=== PATIENT | female | born 1975 | race Caucasian/White ===

== ENCOUNTER 2016-08-15 08:10 | Emergency (ER) | payer BC, OTHER ==
[~2016-08-15] VITALS: Ht 165.1 cm; Wt 143.0 kg
[~2016-08-15 08:10] MED LIST: FLUO20CA35 PO; MEDLIST
[2016-08-15 08:12] VITALS: TEMP 36.8; Ht 165.1 cm; Wt 143.0 kg
[2016-08-15] MEDS ORDERED: VNTHFA/IN INH (08:20)
[2016-08-15] MEDS ORDERED: BENZ100C84 PO (08:20)
[2016-08-15 08:24] VITALS: O2SAT 99
[2016-08-15] MEDS ORDERED: SODIUM CHLORIDE 0.9% 1000ML 1,000 ML IV STA (08:32)
[2016-08-15] MEDS ORDERED: ALBUT/IPRATROP 3MG/0.5MG NEB 3 ML VIAL INH STA ×2 (08:35→10:36)
[2016-08-15] MEDS ORDERED: DEXAMETHASONE SOD INJ 10 MG/ML VIAL IV ONE (08:45)
--- NOTE | 2016-08-15 08:58 | DIAGNOSTIC IMAGING REPORT ---
CHEST ONE VIEW PORTABLE CLINICAL HISTORY: Right-sided chest pain. COMPARISON STUDY: No previous studies for comparison. FINDINGS: Lung volumes are normal. No consolidation is identified. There is no evidence of pulmonary edema. Cardiac size is normal. Mediastinal contours are normal. IMPRESSION: No acute cardiopulmonary findings. Electronically signed by: Keron Berg M.D. 08/15/2016 8:56 AM Dictated Date/Time: 08/15/2016 8:56 AM
[2016-08-15 09:00] LABS: BASO % 0.3 %; BASO ABS # 0.03 K/uL (0-0.2); EOS % 3.7 %; HEMATOCRIT 26.7 % (37-47); IG% 0.7 %; LYMPH % 21.3 %; LYMPH ABS # 2.27 K/uL (1.2-3.4); MEAN CELL VOLUME 65.6 fL (80-100); MEAN CORPUSCULAR HEMOGLOBIN 19.2 pg (25-34); MEAN CORPUSCULAR HGB CONC 29.2 g/dl (32-36); MEAN PLATELET VOLUME 9.2 fL (7.4-10.4); MONO % 6.6 %; NEUT % 67.4 %; PLATELET COUNT 393 K/uL (130-400); RED BLOOD COUNT 4.07 M/uL (4.2-5.4); WHITE BLOOD COUNT 10.67 K/uL (4.8-10.8)
[2016-08-15 09:17] LABS: BUN/CREATININE RATIO 17.3 (10-20); CALCIUM 8.6 mg/dl (8.5-10.1); CREATININE 0.75 mg/dl (0.60-1.20); POTASSIUM 4.3 mmol/L (3.5-5.1)
[2016-08-15 09:22] LABS: CKMB/CK RATIO 0.5 (0-3.0)
[2016-08-15 09:26] LABS: PREG INTERNAL NEGATIVE QC NEG CLEAR BACKGROUND; PREG INTERNAL POSITIVE QC POS CONTROL LINE
[2016-08-15 09:34] LABS: ANISOCYTOSIS PRESENT; COMPLETE YES; POIKILOCYTOSIS PRESENT; POLYCHROMASIA 1+
[2016-08-15 10:23] VITALS: BP 139/76; PULSE 71
[2016-08-15] MEDS ORDERED: HYDROCODONE/ACETAMOPHEN 5/325MG TAB PO STA (10:36)
[2016-08-15 10:45] VITALS: O2SAT 96
[2016-08-15] MEDS ORDERED: HYDR-5688 PO (10:51)
[2016-08-15] MEDS ORDERED: PRED20TA PO (10:51)
--- NOTE | 2016-08-15 15:42 | EMERGENCY ROOM VISIT NOTE ---
History Report prepared by Vamshiibzeferino: Saqib Khan Under the Supervision of: Dr. Rodrigo Lawson M.D. First contact with patient: 08:19 Chief Complaint: RESPIRATORY PROBLEMS Stated Complaint: RIGHT SIDED CHEST PAIN History of Present Illness The patient is a 41 year old female who presents to the Emergency Room with complaints of worsening right-sided chest pain since yesterday. The patient feels a pressure sensation under the right breast. She rated the pain 7/10 in severity. The pain is worse with coughing, which is mildly productive. The pain is not modified by breathing or eating. The patient has had a respiratory illness for the past two weeks. She has taken a five day course of Prednisone, Tessalon Perls, and Azithromycin. The patient has not had any fevers or chills this week. She also denies LOC, headache, diaphoresis, visual changes, neck pain , breathing difficulties, nausea, vomiting, abdominal pain, back pain, melena, hematochezia, urinary symptoms, numbness, weakness, lymphadenopathy, rash, leg pain or swelling, or other complaints. The patient has a history of asthma, but not other respiratory problems. She denies any history of cardiac disease or blood clots. She has not traveled recently. She works at a school. Source of History: patient Onset: yesterday Position: chest (right) Symptom Intensity: 7/10 Quality: pressure Timing: worsening Associated Symptoms: + cough Review of Systems See HPI for pertinent positives and negatives. A total of ten systems were reviewed and were otherwise negative. Past Medical & Surgical Medical Problems: (1) Asthma Family History No pertinent family history Social History Smoking Status: Never Smoker Occupation Status: employed Current/Historical Medications Scheduled Albuterol Hfa (Ventolin Hfa), 2 PUFFS INH Q4 Benzonatate (Tessalon Perles), 1 CAP PO TID Prednisone (Prednisone), 3 TAB PO DAILY Scheduled PRN Hydrocodone/Acetaminophen 5MG/325MG ([place] 5MG/325MG), 1-2 TABS PO Q6H PRN for Pain Allergies Coded Allergies: No Known Allergies (Verified , 08/22/10) Physical Exam Vital Signs Date Time Temp Pulse Resp B/P Pulse Ox O2 Delivery O2 Flow Rate FiO2 08/15/16 10:45 96 Room Air 08/15/16 10:23 71 18 139/76 95 Room Air 08/15/16 08:39 75 08/15/16 08:24 99 Room Air 08/15/16 08:24 99 Room Air 08/15/16 08:24 98 Room Air 08/15/16 08:12 36.8 82 19 165/86 99 Room Air Physical Exam GENERAL: Awake, alert, well-appearing, in no distress HENT: Normocephalic, atraumatic. Oropharynx unremarkable. EYES: Normal conjunctiva. Sclera non-icteric. NECK: Supple. No nuchal rigidity. FROM. No JVD. RESPIRATORY: Scattered wheezes and rhonchi. CARDIAC: Regular rate, normal rhythm. Extremities warm and well perfused. Pulses equal. ABDOMEN: Soft, non-distended. No tenderness to palpation. No rebound or guarding. No masses. RECTAL: Deferred. MUSCULOSKELETAL: Chest examination reveals mild right anterior rib tenderness. The back is symmetrical on inspection without obvious abnormality. There is no CVA tenderness to palpation. No joint edema. LOWER EXTREMITIES: Calves are equal size bilaterally and non-tender. No edema. No discoloration. NEURO: Normal sensorium. No sensory or motor deficits noted. SKIN: No rash or jaundice noted. Medical Decision & Procedures ER Provider Diagnostic Interpretation: X-ray: Per my interpretation, radiologist review. CHEST ONE VIEW PORTABLE CLINICAL HISTORY: Right-sided chest pain. COMPARISON STUDY: No previous studies for comparison. FINDINGS: Lung volumes are normal. No consolidation is identified. There is no evidence of pulmonary edema. Cardiac size is normal. Mediastinal contours are normal. IMPRESSION: No acute cardiopulmonary findings. Electronically signed by: Keron Berg M.D. 08/15/2016 8:56 AM Dictated Date/Time: 08/15/2016 8:56 AM Laboratory Results 08/15/16 08:45 Red Blood Count 4.07, Mean Corpuscular Volume 65.6, Mean Corpuscular Hemoglobin 19.2, Mean Corpuscular Hemoglobin Concent 29.2, Mean Platelet Volume 9.2, Neutrophils (%) (Auto) 67.4, Lymphocytes (%) (Auto) 21.3, Monocytes (%) (Auto) 6.6, Eosinophils (%) (Auto) 3.7, Basophils (%) (Auto) 0.3, Neutrophils # (Auto) 7.19, Lymphocytes # (Auto) 2.27, Monocytes # (Auto) 0.70, Eosinophils # (Auto) 0.40, Basophils # (Auto) 0.03 08/15/16 08:45 Test 08/15/16 08:45 08/15/16 08:48 White Blood Count 10.67 K/uL (4.8-10.8) Red Blood Count 4.07 M/uL (4.2-5.4) Hemoglobin 7.8 g/dL (12.0-16.0) Hematocrit 26.7 % (37-47) Mean Corpuscular Volume 65.6 fL (80-100) Mean Corpuscular Hemoglobin 19.2 pg (25-34) Mean Corpuscular Hemoglobin Concent 29.2 g/dl (32-36) Platelet Count 393 K/uL (130-400) Mean Platelet Volume 9.2 fL (7.4-10.4) Neutrophils (%) (Auto) 67.4 % Lymphocytes (%) (Auto) 21.3 % Monocytes (%) (Auto) 6.6 % Eosinophils (%) (Auto) 3.7 % Basophils (%) (Auto) 0.3 % Neutrophils # (Auto) 7.19 K/uL (1.4-6.5) Lymphocytes # (Auto) 2.27 K/uL (1.2-3.4) Monocytes # (Auto) 0.70 K/uL (0.11-0.59) Eosinophils # (Auto) 0.40 K/uL (0-0.5) Basophils # (Auto) 0.03 K/uL (0-0.2) RDW Standard Deviation 43.3 fL (36.4-46.3) RDW Coefficient of Variation 18.3 % (11.5-14.5) Immature Granulocyte % (Auto) 0.7 % Immature Granulocyte # (Auto) 0.08 K/uL (0.00-0.02) Polychromasia 1+ Poikilocytosis PRESENT Anisocytosis PRESENT Anion Gap 9.0 mmol/L (3-11) Est Creatinine Clear Calc Drug Dose 143.9 ml/min Estimated GFR () 115.6 Estimated GFR (Non- 99.7 BUN/Creatinine Ratio 17.3 (10-20) Calcium Level 8.6 mg/dl (8.5-10.1) Total Bilirubin 0.4 mg/dl (0.2-1) Direct Bilirubin 0.1 mg/dl (0-0.2) Aspartate Amino Transf (AST/SGOT) 9 U/L (15-37) Alanine Aminotransferase (ALT/SGPT) 23 U/L (12-78) Alkaline Phosphatase 55 U/L (45-117) Total Creatine Kinase 196 U/L (26-192) Creatine Kinase MB 0.9 ng/ml (0.5-3.6) Creatine Kinase MB Ratio 0.5 (0-3.0) Total Protein 6.5 gm/dl (6.4-8.2) Albumin 3.2 gm/dl (3.4-5.0) Lipase 124 U/L (73-393) Human Chorionic Gonadotropin, Qual NEG (NEG) Bedside D-Dimer 200 ng/mlFEU (0-450) Bedside Troponin I 0.000 ng/ml (0-0.045) Laboratory results reviewed by me Medications Administered Medications (Trade) Dose Ordered Sig/Farzad Route Start Time Stop Time Status Last Admin Dose Admin Sodium Chloride (Nss 1000ml) 1,000 ml @ 999 mls/hr Q1H1M STAT IV 08/15/16 08:32 08/15/16 09:32 DC 08/15/16 08:41 999 MLS/HR Dexamethasone Sodium Phosphate (Decadron Inj) 10 mg NOW ONCE IV 08/15/16 08:45 08/15/16 08:46 DC 08/15/16 08:40 10 MG Albuterol/ Ipratropium (Duoneb) 3 ml NOW STAT INH 08/15/16 08:35 08/15/16 08:36 DC 08/15/16 08:40 3 ML Albuterol/ Ipratropium (Duoneb) 3 ml NOW STAT INH 08/15/16 10:36 08/15/16 10:38 DC 08/15/16 10:46 3 ML Acetaminophen/ Hydrocodone Bitart ([place] 5/325 Tab) 1 tab NOW STAT PO 08/15/16 10:36 08/15/16 10:38 DC 08/15/16 10:47 1 TAB ECG Indication: chest pain Rate (beats per minute): 75 Rhythm: normal sinus Findings: no acute ischemic change, no ectopy ED Course 0832: The patient was evaluated in room B11b. A complete history and physical exam was performed. 0832: NSS 1000 ml @ 999 mls/hr. 0835: DuoNeb 3 ml INH. 0845: Decadron 10 mg IV. 1034: Updated the patient on the results. 1036: [place] 5/325 mg PO, DuoNeb 3 ml INH. 1100: Reassessed the patient. She verbalized understanding and agreement of the treatment plan. The patient is ready for discharge. Medical Decision Triage Nursing notes reviewed. The patient's presentation and history were concerning for Cough, reactive airways, and right-sided chest pain Etiologies such as pleurisy, reactive airway disease, cardiac ischemia, aortic dissection, pulmonary embolism, pneumonia, pneumothorax, musculoskeletal, infections, gastrointestinal, as well as others were entertained. The patient was evaluated. She had some wheezing. She was given a DuoNeb and Decadron. On reassessment she was feeling better. She was given a second neb as well as hydrocodone for the rib pain. The patient's CBC revealed a moderate anemia which was consistent with prior values. The patient notes a long history of anemia but is unsure exactly why. She thinks she may have thalassemia. The patient had a negative d-dimer and troponin. Chemistry panel , hCG, and LFTs were unremarkable. I suspect that she has some pleurisy or costochondritis from her cough. There is no evidence of rib fracture. I discussed conservative management with the patient. She'll be given a small amount of hydrocodone, use her inhaler, and I will put her on a full dose of prednisone for 4 more days. She thinks she was only taking 2 pills a day which would be likely 40 mg and given her weight she will need more. By the evaluation outlined above other emergent etiologies such as those listed in the differential, as well as others, were deemed relatively unlikely. The patient was informed about the findings as listed above. All questions were answered and she was pleased with the treatment. Return instructions were outlined and the patient was discharged in stable condition. The patient was referred to her PCP for follow-up for a recheck of the current condition. The chart was completed utilizing [employer] [place] voice recognition software. Grammatical errors, random word insertions, pronoun errors, and incomplete sentences are an occasional consequence of this system due to software limitations, ambient noise, and hardware issues. Any formal questions or concerns about the content, text, or information contained within the body of this dictation should be directly addressed to the physician for clarification. [place] Drug Monitoring Program Search Results: patient reviewed within database, no issues identified Impression Primary Impression: RAD (reactive airway disease) Additional Impressions: Right-sided chest pain Anemia Scribe Attestation The scribe's documentation has been prepared under my direction and personally reviewed by me in its entirety. I confirm that the note above accurately reflects all work, treatment, procedures, and medical decision making performed by me. Departure Information Dispostion Home / Self-Care Prescriptions Prednisone (Prednisone) 20 Mg Tab 3 TAB PO DAILY, #12 TAB FOR 4 DAYS Prov: Rodrigo Lawson MD 08/15/16 Hydrocodone/Acetaminophen 5MG/325MG ([place] 5MG/325MG) Tab 1-2 TABS PO Q6H Y for Pain, #12 TAB Prov: Rodrigo Lawson MD 08/15/16 Referrals Nevaeh Potter M.D. (PCP) Forms HOME CARE DOCUMENTATION FORM, IMPORTANT VISIT INFORMATION, WORK / SCHOOL INSTRUCTIONS Patient Instructions My [facility] Additional Instructions Albuterol Inhaler: Take 2 puffs four times daily for five days, then as needed. Prednisone 60mg: Once daily until the prescription is finished. It is best to take this earlier in the day as some patients note occasional difficulty falling asleep when taken in the late evening. Hydrocodone/acetaminophen 5/325mg: Take 1-2 pills every 6 hours as needed for pain. Avoid additional Acetaminophen/Tylenol, alcohol, operating machinery or dangerous equipment, working on ladders or roofs, DRIVING, or situations where being under the influence may be dangerous. It is recommended to use a stool softener such as Colace, 100mg twice daily while taking this medication to avoid constipation. Rest and drink plenty of fluids. Avoid smoke/smoking, fumes, dust, or any triggers in the past that may have affected your breathing. Continue current medications. Return to the ER for chest pain, difficulty breathing, fevers, vomiting, worsening of your condition, or as needed. Follow up with your primary physician this week for a recheck of your current condition. Problem Qualifiers
== END 2016-08-15 11:07 | disposition home or self-care (01) ==
LOC: C.EDB 08:11
DX: J45.909 Unspecified asthma, uncomplicated (principal); R07.9 Chest pain, unspecified; D64.9 Anemia, unspecified

== ENCOUNTER 2023-08-31 00:59 | Observation (INO) ==
--- OUTSIDE RECORDS SUMMARY | 2023-08-31 01:04 | External Medical Summary | Summary of Care ---
Author Name Unknown Organization [facility] [address] [address] [address] Phone [phone] Care Team Providers Care Professor Of Industrial Technology Name Role Phone Unavailable Primary Care Provider Unavailabl e Reason for Visit * Reason Comments Acute Patient presents in office today for rash located on B/L arms and legs -- noticed since Friday, feels like slightly improving, but some blistering on some spots.Red, some itchiness -- has used hydrocortisone cream, slight relief.Patient denies any changes in normal routine (laundry, soaps, etc ..) Encounter Details Date Type Department Care Team (Late st Contact Info) Description 06/06/2023 8:40 AM EST Office Visit [facility] [address] [facility] [place] [address] Dayan Brown CRNP [address] [facility] [place] [address] Contact dermatitis, unspecified contact dermatitis type, unspecified trigger* Allergies Active Allergy Reactions Criticality Noted Date Comments Ferric Derisomaltose 08/07/2021 Approx 5 min into infusion, pt flushed, felt like passing out, chest heavy. Given solucortef which resolved symptoms Pollen Other (Please comment) High 12/05/2014 documented as of this encounter (statuses as of 06/06/2023) Medications Medication Sig Dispensed Refills Start Date End Date Status FLONASE 50 MCG/ACT NA SUSPIndications:All ergic rhinitis Two sprays each nostril once daily 1 Bottle 11 03/24/2012 Active cetirizine (ZYRTEC) 10 MG Tablet Take 1 Tablet by mouth in the morning. 0 Active Vitamin D 50 MCG (2000 UT) Oral Capsule Take 2,000 Units by mouth daily. 0 Active Childrens Chewable Vitamins Oral Tablet Chewable Take 1 Tablet by mouth in the morning and 1 Tablet before bedtime. 0 Active Vitamin A 2250 MCG (7500 UT) Oral Capsule Take by mouth . 0 Active Nystatin 785304 UNIT/GM External Powder (Nystop) Apply topically to affected area 2 times a day . 60 g 2 10/30/2021 Active Citracal Petites/Vitamin D 200-250 MG-UNIT Oral Tablet (Calcium Citrate-Vitamin D) Take by mouth 2 Tablets 2 times a day . 0 Active predniSONE 20 MG Oral Tablet (Deltasone) Take 1 Tablet by mouth daily for 5 days, THEN 0.5 Tablets daily for 5 days. 8 Tablet 0 06/06/2023 06/16/2023 Active Triamcinolone Acetonide 0.1 % External Cream (Aristocort) Apply topically to affected area 2 times a day. To affected area. 60 g 0 06/06/2023 Active Hospital, Clinic, or Other Facility Administered Medication Ordered Dose Route Frequency Start Date End Date Status vitamin b-12 (Cyanocobalamin) inj 1,000 mcgIndications:Intestinal postoperative nonabsorption 1000 mcg IM [id number] 09/10/2022 11/04/19 24 Active documented as of this encounter (statuses as of 06/06/2023) Active Problems Problem Noted Date Diagnosed Date Contact dermatitis 06/06/2023 Hx of melanoma in situ 08/12/2022 Overview: Early MIS/severely atypical nevus (central upper back 08/12) Hx of nonmelanoma skin cancer 07/31/2021 Overview: basal cell carcinoma (R nasal ala 06/2020) Body mass index (BMI) of 40.0 to 44.9 in adult 1 Overview: Per Obesity protocol - Per Obesity protocol - Per Obesity protocol - Pre-operative examination 09/22/2020 Prediabetes 07/03/2020 Overview: Per Prediabetes protocol Depression with anxiety 06/21/2020 Iron deficiency anemia 12/18/2018 Thalassemia trait documented as of this encounter (statuses as of 06/06/2023) Resolved Problems Problem Noted Date Diagnosed Date Resolved Date Body mass index (BMI) of 45. 0 to 49.9 in adult 04/02/2021 05/03/2021 Overview: Per Obesity protocol - Per Obesity protocol - Body mass index (BMI) of 50. 0 to 59.9 in adult 11/28/2020 04/05/2021 Overview: Per Obesity protocol - Anemia 12/18/2018 02/22/2020 BMI 60.0-69.9, adult 11/30/2018 021 Overview: Per Obesity protocol #1 Obesity, morbid (more than 1 00 lbs over ideal weight or BMI > 40) 05/26/2013 12/02/2018 Overview: Per Obesity protocol #1 Acute sinusitis 03/24/2012 05/05/2012 Acute sinusitis 11/11/2011 05/05/2012 Chronic rhinitis 06/08/2011 02/22/2020 Acute bronchitis, complicated 06/08/2011 05/05/2012 Cough 06/08/2011 05/05/2012 Allergic rhinitis 04/03/2011 07/18/2020 Nausea 04/03/2011 05/05/2012 Overview: ICD-10 update of inactive term Malaise and fatigue 05/01/2010 02/22/20 20 Unspecified viral infection, in conditions classified elsewhere and of unspecified site 05/01/2010 01/18/2011 Obesity, morbid (more than 1 00 lbs over ideal weight or BMI > 40) 01/02/2010 05/05/2012 Overview: Per Obesity Protocol, #19 ICD-10 update of inactive term Other iron deficiency anemia 07/10/2009 02/22/2020 Overview: ICD-10 update of inactive term influenza type A 05/19/2009 08/28/2009 Overview: Influenza type A positive nasal swab 05/19/09 Other known or suspected fet al abnormality, not elsewhere classified, affecting management of mother, antepartum condition or complication 02/24/2009 02/27/2009 ADVANCE DIRECTIVE INFORMATION 02/23/2009 07/18/2020 Overview: Pt states that she has a living will. Advised to bring copy at next visit. Anemia of mother, complicati ng , childbirth, or the puerperium, unspecified as to episode of care(648.20) 01/13/2009 08/28/2009 Overview: Abnormal CBC at NOB visit, additional labs ordered to assess. Normal hemoglobin pattern noted, discuss at next visit-discussed; message to Dr. Castillo 02/02 for further advice Per dryerman/woman 06/12: begin ferrous sulfate 325mg TID; repeat CBC q 2-3 weeks until delivery Repeat CBC 2-3 mths PP or sooner if pt symptomatic. May f/u with hem PP. Obtained 06/27: 8.7 Hematology consult 07/10: pt to complete further bloodwork for alpha thalessemia trait, pt to begin OTC FeSO4 TID Hg 08/10 = 8.5 Bacterial infection due to S treptococcus, group B 01/13/2009 08/28/2009 Overview: GBS UTI at NOB visit. Rx placed, needs NAYA-obtained 02/02-+GBS-Rx for Pen V started 02/06-needs NAYA-obtained 02/27/09 IV abx in labor Trichomonal vaginitis 01/13/20092009 Overview: Found on NOB pap smear. Rx placed for 2g Flagyl, advised partner needs to be treated. Pt finished abx, partner was treated NAYA next visit-negative Pre-eclampsia, mild, delivered 2009 08/28/2009 Overview: History of preeclampsia with previous . 24hr urine and baseline labs ordered- all WNL Encounter for supervision of other normal 01/06/2009 08/28/2009 Overview: History of preeclampsia with prior , delivered at 38wk. Baseline 24 hour urine at NOB visit-0.173grams ICD-10 update of inactive term History of section complicating 01/06/2009 08/28/2009 Overview: Vertical skin c/s with previous . Aware of need for repeat c/s this . Pt states that uterine incision in transverse and OR records confirm Morbid obesity, BMI not known 07/10/2007 08/28/2009 Overview: Early glucola ordered-wnl Has been seeing senior java engineer prior to . ADJ DISORDER W/DEPRES MOOD 04/10/2006 0 08/28/2009 Overview: Stopped Effexor through PCP, doing well Monitor throughout IRON DEFIC ANEMIA NOS 03/25/20062008 Overview: Not taking fe supp currently Normal , first 09/16/200104/20 OVERWEIGHT 09/16/2001 02/27/2009 documented as of this encounter (statuses as of 06/06/2023) Immunizations Name Administration Dates Next Due PPD 03/14/2016 Seasonal Influenza, Split, I IV3, With Preserve, Inj 04/24/2013,04/15/2012,05/21/2011, 0 10 TD - Tetanus/Diptheria (ADULT) 07/21/2000 TDAP (age 11 and older)(Adacel) 03/06/2011 documented as of this encounter Social History Tobacco Use Types Packs/Day Years Used Date Smoking Tobacco: Never Smokeless Tobacco: Never Alcohol Use Standard Drinks/Week Comments No 0 (1 standard drink = 0.6 oz pur e alcohol) PHQ-2 Answer Date Recorded PHQ-2 Score 2 02/22/2020 Sex and Gender Information Value Date Recorded Sex Assigned at Not on file Gender Identity Not on file Sexual Orientation Not on file Job Start Date Occupation Industry Not on file Not on file Not on file documented as of this encounter Last Filed Vital Signs Vital Sign Reading Time Taken Comments Blood Pressure 110/64 06/06/2023 8:44 AM EST Pulse 65 06/06/2023 8:44 AM EST Temperature - - Respiratory Rate 18 06/06/2023 8:44 AM EST Oxygen Saturation 99% 06/06/2023 8:44 AM EST Inhaled Oxygen Concentration - - Weight - - Height 165.1 cm (5' 5") 06/06/2023 8:44 AM EST Body Mass Index - - documented in this encounter Functional Status Functional Status Response Date of Assess ment Are you deaf or do you have serious difficulty h earing? No 10/04/2020 Are you blind or do you have serious difficulty seeing, even when wearing glasses? No 10/04/2020 Do you have serious difficul ty walking or climbing stairs? (5 years old or older) No 10/05/2020 Do you have difficulty dress ing or bathing? (5 years old or older) No 10/04/2020 Because of a physical, menta l, or emotional condition, do you have difficulty doing errands alone such as visiting a doctor s office or shopping? (15 years old or older) No 10/05/19 Cognitive Status Response Date of Assessm ent Because of a physical, menta l, or emotional condition, do you have serious difficulty concentrating, remembering, or making decisions? (5 years old or older) No 10/04/2020 documented as of this encounter Progress Notes * Dayan Brown CRNP - 06/06/2023 8:55 AM EST Images from the original note were not included. Acute Family Medicine Visit CC: Chief Complaint Patient presents with Acute Patient presents in office today for rash located on B/L arms and legs -- noticed since Friday, feels like slightly improving, but some blistering on some spots. Red, some itchiness -- has used hydrocortisone cream, slight relief. Patient denies any changes in normal routine (laundry, soaps, etc ..) History of Present Illness: Martha Jones is a 48 year old female presenting today with complaints of rash on arms and legs. Denies fever or chills. No pain but very itchy. Tried benedryl at bedtime and hydrocortisone. Denies new meds No recent travel Denies changes to body care products Denies tick bites Social History Socioeconomic History Marital status: Single Spouse name: Not on file Number of children: Not on file Years of education: Not on file Highest education level: Not on file Occupational History Occupation: Food services Employer: [employer] Comment: [employer] Tobacco Use Smoking status: Never Smokeless tobacco: Never Vaping Use Vaping Use: Never used Substance and Sexual Activity Alcohol use: No Drug use: No Sexual activity: Yes Partners: Male Other Topics Concern Service Not Asked Blood Transfusions Not Asked Caffeine Concern Not Asked Occupational Exposure Not Asked Hobby Hazards Not Asked Sleep Concern Not Asked Stress Concern Not Asked Weight Concern Not Asked Special Diet Not Asked Back Care Not Asked Exercise Yes Comment: occ Bike Helmet Not Asked Seat Belt Not Asked Self-Exams Yes Comment: breast Social History Narrative Not on file Social Determinants of Health Financial Resource Strain: Not on file Food Insecurity: Unknown (06/05/2023) Hunger Vital Sign Worried About Running Out of Food in the Last Year: Patient refused Ran Out of Food in the Last Year: Patient refused Transportation Needs: Not on file Physical Activity: Not on file Stress: Not on file Social Connections: Not on file Intimate Partner Violence: Not on file Housing Stability: Not on file PMH: Past Medical History: Diagnosis Date Allergic rhinitis Depressive disorder, not elsewhere classified Iron deficiency anemia Morbid obesity with BMI of 40.0-44.9, adult (HCC) Other anxiety states Other specified anemias Thalassemia trait Past Surgical History: Procedure Laterality Date DELIVERY 2002 and 2009 EGD, FLEXIBLE, DIAGNOSTIC N/A 10/04/2020 ESOPHAGOGASTRODUODENOSCOPY (EGD), FLEXIBLE, TRANSORAL, DIAGNOSTIC performed by Andrade Garcia MD at OR [facility] LAPAROSCOPE PROCEDURE, LIVER N/A 10/04/2020 UNLISTED LAPAROSCOPIC PROCEDURE LIVER performed by Andrade Garcia MD at OR [facility] LAPAROSCOPIC GASTRIC BYPASS/DAYSI-EN-Y N/A 10/04/2020 ROBOTIC LAPAROSCOPIC GASTRIC RESTRICTIVE BYPASS DAYSI EN Y performed by Andrade Garcia MD at OR [facility] REMOVE GALLBLADDER 1995 REMOVE TONSILS & ADENOIDS, UNDER 12 1980 RMV LSN SCLP,NCK,EXT 1.1-2.0CM 10/24/05 Removal of cysts from scalp x [address] Mahoney Outpatient Medications Marked as Taking for the 06/06/23 encounter (Office Visit) with Naeem Brown CRNP Medication Sig Citracal Petites/Vitamin D 200-250 MG-UNIT Oral Tablet (Calcium Citrate-Vitamin D) Take by mouth 2 Tablets 2 times a day . Nystatin 944758 UNIT/GM External Powder (Nystop) Apply topically to affected area 2 times a day . Vitamin A 2250 MCG (7500 UT) Oral Capsule Take by mouth . Childrens Chewable Vitamins Oral Tablet Chewable Take 1 Tablet by mouth in the morning and 1 Tabletbefore bedtime. Vitamin D 50 MCG (2000 UT) Oral Capsule Take 2,000 Units by mouth daily. cetirizine (ZYRTEC) 10 MG Tablet Take 1 Tablet by mouth in the morning. FLONASE 50 MCG/ACT NA SUSP Two sprays each nostril once daily Current Facility-Administered Medications for the 06/06/23 encounter (Office Visit) with Dayan Brown CRNP Medication vitamin b-12 (Cyanocobalamin) inj 1,000 mcg Review of patient's allergies indicates: Allergen Reactions Pollen Other (Please comment) Monoferric [Ferric Derisomaltose] Approx 5 min into infusion, pt flushed, felt like passing out, chest heavy. Given solucortef which resolved symptoms Most Recent Immunizations Administered Date(s) Administered Iron Sucrose 11/17/2009 PPD 03/14/2016 Seasonal Influenza, Split, IIV3, With Preserve, Inj 04/24/2013 TD - Tetanus/Diptheria (ADULT) 07/21/2000 TDAP (age 11 and older)(Adacel) 03/06/2011 Review of Systems: Review of Systems Constitutional: Negative for fatigue. Respiratory: Negative for shortness of breath and wheezing. Cardiovascular: Negative for chest pain. Skin: Positive for rash. Physical Exam: BP 110/64 | Pulse 65 | Resp 18 | Ht 1.651 m (5' 5") | SpO2 99% | BMI 32.95 kg/m | BSA 2.03 m Physical Exam HENT: Head: Normocephalic. Pulmonary: Effort: Pulmonary effort is normal. Skin: Findings: Erythema and rash present. Rash is macular and papular. Neurological: General: No focal deficit present. Mental Status: She is alert and oriented to person, place, and time. Psychiatric: Mood and Affect: Mood normal. Behavior: Behavior normal. Thought Content: Thought content normal. Judgment: Judgment normal. Assessment and Plan: 1. Contact dermatitis, unspecified contact dermatitis type, unspecified trigger UNKNOWN TRIGGER C/W CONTACT DERM ADD ZYRTEC 10 MG ADD PREDNISONE TAPER ADD TOPICAL STEROID MED USE AND AND PRECAUTIONS I have advised the patient to call our office incase of any worsening or new symptoms. I spent a total of 20-29 minutes (exact time 20 mins) on the date of service in preparation, delivery, and documentation of the care provided to Martha Jones excluding any time spent in the performance of separately billed services. Tyesha, MSN, AUTUNM [facility] Medicine documented in this encounter Nursing Notes * Iwona Arambula MED ASSIST - 06/06/2023 8:43 AM EST The patient has been properly identified by confirmation of name and date of . Chief Complaint Patient presents with Acute Patient presents in office today for rash located on B/L arms and legs -- noticed since Friday, feels like slightly improving, but some blistering on some spots. Red, some itchiness -- has used hydrocortisone cream, slight relief. Patient denies any changes in normal routine (laundry, soaps, etc ..) documented in this encounter Plan of Treatment Upcoming Encounters Date Type Department Care Team (Late st Contact Info) Description 07/25/2023 2:00 PM EST Nurse Only Nutrition & Weight Management, [facility] [address] [facility] [place] [address] [facility], Nurse Gi Nutrition [facility] [address] [facility] [place] [id number] 08/12/2023 2:20 PM EST Office [address], [address] [address] Lesly Velazquez PA-C [address] [place] [address] [place] [phone] 08/19/2023 2:00 PM EST Office Visit Hematology/Oncology [facility] Mendoza [place] [address] [facility] [place] [address] Rhoda Lerma CRNP [address] [place] [address] Health Maintenance Due Date Last Done Comments Hepatitis B (1 of 3 - 3-dose series) 1975 COVID-19 Vaccine (#1) 1975 Hepatitis C Screening 01/11/1994 HPV/Co-Test 01/11/2006 Cervical Cancer Screening 07/04/2013 Pap Smear 07/04/2013 07/04/2010, 06/20, 01/06/2009, Additional history exists Cologuard 01/11/2021 Colonoscopy 01/11/2021 Colorectal Cancer Screening 01/11/2021 Fecal Occult Blood Test 01/11/2021 05/06/1996 Sigmoidoscopy 01/11/2021 Depression Screening 02/21/2021 02/22/2020 DTaP,Tdap,and Td Vaccines (2 - Td or Tdap) 03/06/2021 03/06/2011, 07/21/2000 Mammogram 03/10/2021 03/10/2020, 08/14/2016 Influenza Vaccine (FLU shot) (#1) 2023 04/24/2013, 04/15/2012, 05/21/2011, Additional history exists HbA1c 09/10/2023 09/10/2022, 02/0 03/2022, 03/05/2021, Additional history exists Lipid Panel 09/10/2027 09/10/2022, 02/0 03/2022, 03/05/2021, Additional history exists GARDASIL-HPV IMMUNIZATION SERIES Aged Out No longer eligible based on patient's age to complete this topic MENINGOCOCCAL (MENACTRA/MENVEO) Aged Out No longer eligible based on patient's age to complete this topic Pneumococcal Vaccine: Pediatrics (0 to 5 Years) and At-Risk Patients (6 to 64 Years) Aged Out No longer eligible based on patient's age to complete this topic documented as of this encounter Medical Devices Not on filedocumented as of this encounter Visit Diagnoses Diagnosis Contact dermatitis, unspecified contact dermatitis type, unspecified trigger- Primary documented in this encounter Advance Directives Latest Code Status on File Code Status Date Activated Date Inactivated Comments Full Code 10/04/2020 11:01 AM 10/05/2020 4:28 PM This order reflects the patients wishes and were consensually agreed upon. Code Status History Code Status Date Activated Date Inactivated Comments Full Code 10/04/2020 6:30 AM 10/04/2020 11:01 AM This order reflects the patients wishes and were consensually agreed upon.
--- OUTSIDE RECORDS SUMMARY | 2023-08-31 01:04 | External Medical Summary | Summary of Care ---
Author Name Unknown Organization [facility] Address [address] [facility] [place] [address] Phone [phone] Care Team Providers Care Detective Private Eye Name Role Phone Unavailable Primary Care Provider Unavailabl e Reason for Visit * Reason Comments Medication Administration B12 Encounter Details Date Type Department Care Team (Late st Contact Info) Description 07/25/2023 2:00 PM EST Nurse Only Nutrition & Weight Management, [facility] [address] [facility] [place] [address] [facility], Nurse Gi Nutrition [facility] [address] [facility] [place] [address] Medication Administration (B12/) Allergies Active Allergy Reactions Criticality Noted Date Comments Ferric Derisomaltose 08/07/2021 Approx 5 min into infusion, pt flushed, felt like passing out, chest heavy. Given solucortef which resolved symptoms Pollen Other (Please comment) High 12/05/2014 documented as of this encounter (statuses as of 07/25/2023) Medications Medication Sig Dispensed Refills Start Date End Date Status FLONASE 50 MCG/ACT NA SUSPIndications:Stanley rgic rhinitis Two sprays each nostril once daily [...] Take by mouth . 0 Active Nystatin 034161 UNIT/GM External Powder (Nystop) Apply topically to affected area 2 times a day . 60 g 2 10/30/2021 Active Citracal Petites/Vitamin D 200-250 MG-UNIT Oral Tablet (Calcium Citrate-Vitamin D) Take by mouth 2 Tablets 2 times a day . 0 Active Triamcinolone Acetonide 0.1 % External Cream (Aristocort) Apply topically to affected area 2 times a day. To affected area. 60 g 0 06/06/2023 Active Hospital, Clinic, or Other Facility Administered Medication Ordered Dose Route Frequency Start Date End Date Status vitamin b-12 (Cyanocobalamin) inj 1,000 mcgIndications:Intestinal postoperative nonabsorption 1000 mcg IM [id number] 09/10/2022 11/04/19 24 Active documented as of this encounter (statuses as of 07/25/2023) Active Problems Problem Noted Date Diagnosed Date [...] as of this encounter (statuses as of 07/25/2023) Resolved Problems Problem Noted Date Diagnosed Date [...] Dr. Castillo 02/02 for further advice Per sequins spooler 06/12: begin ferrous sulfate 325mg TID; repeat [...] Overview: Early glucola ordered-wnl Has been seeing manager systems prior to . ADJ DISORDER W/DEPRES MOOD 04/10/2006 0 08/28/2009 Overview: Stopped Effexor through PCP, doing well Monitor throughout IRON DEFIC ANEMIA NOS 03/25/20062008 Overview: Not taking fe supp currently Normal , first 09/16/200104/20 OVERWEIGHT 09/16/2001 02/27/2009 documented as of this encounter (statuses as of 07/25/2023) Immunizations Name Administration Dates Next Due PPD [...] Answer Date Recorded PHQ-2 Score 2 02/22/2020 Hunger Vital Sign Answer Date Recorded Within the past 12 months, y ou worried that your food would run out before you got the money to buy more. Patient refused Within the past 12 months, t he food you bought just didn't last and you didn't have money to get more. Patient refused Sex and Gender Information Value Date Recorded Sex Assigned at Not on file Gender Identity Not on file Sexual Orientation Not on file Job Start Date Occupation Industry Not on file Not on file Not on file documented as of this encounter Last Filed Vital Signs Vital Sign Reading Time Taken Comments Blood Pressure - - Pulse - - Temperature - - Respiratory Rate - - Oxygen Saturation - - Inhaled Oxygen Concentration - - Weight 94.6 kg (208 lb 8 oz) 07/25/2023 1:54 PM EST Height - - Body Mass Index 34.7 06/06/2023 8:44 AM EST documented in this encounter Functional Status Functional [...] (15 years old or older) No 10/05/19 21 Cognitive Status Response Date of Assessm ent Because of a physical, menta l, or emotional condition, do you have serious difficulty concentrating, remembering, or making decisions? (5 years old or older) No 10/04/2020 documented as of this encounter Nursing Notes * Dari Pereira LPN - 07/25/2023 1:54 PM EST Pt verified identity by last name and date. Chief Complaint Patient presents with Medication Administration B12 Pre-Administration Time Out Procedure Performed: Yes Patient Identified (Ask Name/Date of ): Yes Does the patient have a fever greater than 101 degrees today? No Patient allergic to latex? No Has the patient ever fainted after receiving an injection? No VFC Stock: No Injection(s) verified: Yes, Injection Name: B12 Verified Side and Site: Yes Verified Shot(s) with Parent(s)/Patient: Yes documented in this encounter Plan of Treatment Upcoming Encounters Date Type Department Care Team (Late st Contact Info) Description 08/12/2023 2:20 PM EST Office Visit [facility] [place] [address] Lesly Velazquez PA-C [address] [place] [address] [place] [address] 08/19/2023 2:00 PM EST Office Visit Hematology/Oncology [facility] [address] [place] [address] Rhoda Lerma, AUTUMN [address] [place] [address] 10/24/2023 1:50 PM EDT Nurse Only Gastroenterology, [facility] [place] [address] [place] [address] Nurse Aj Arriaga [facility] [address] [place] [address] Health Maintenance Due Date Last Done Comments [...] Additional history exists Lipid Panel 09/10/2027 09/10/2022, 020 03/2022, 03/05/2021, Additional history exists GARDASIL-HPV IMMUNIZATION [...] as of this encounter Visit Diagnoses Diagnosis 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
--- OUTSIDE RECORDS SUMMARY | 2023-08-31 01:04 | External Medical Summary | Summary of Care ---
Author Name Unknown Organization [facility] Address [address] [facility] [place] [address] Phone [phone] Care Team Providers Care Grants Director Name Role Phone Thomas Toledo DO Primary Care Provider [phone] Reason for Visit * Reason Comments Medication Administration B12 Encounter Details Date Type Department Care Team Description 04/24/2023 Nurse Only Nutrition & Weight Management, [facility] [address] [facility], Nurse Gi Nutrition [facility] [address] Medication Administration (B12) Allergies Active Allergy Reactions Severity Noted Date Comments Ferric Derisomaltose 08/07/2021 Approx 5 min into infusion, pt flushed, felt like passing out, chest heavy. Given solucortef which resolved symptoms Pollen Other (Please comment) High 12/05/2014 documented as of this encounter (statuses as of 04/24/2023) Medications Medication Sig Dispensed Refills Start Date End Date Status FLONASE 50 MCG/ACT NA SUSPIndications:Stanley rgic rhinitis Two sprays each nostril once daily 1 Bottle 11 03/24/2012 Active cetirizine (ZYRTEC) 10 MG Tablet Take 1 Tablet by mouth in the morning. 0 Active Vitamin D 50 MCG (1999 UT) Oral Capsule Take 2,000 Units by mouth daily. 0 Active Childrens Chewable Vitamins Oral Tablet Chewable Take 1 Tablet by mouth in the morning and 1 Tablet before bedtime. 0 Active Vitamin A 2250 MCG (7500 UT) Oral Capsule Take by mouth . 0 Active Nystatin [id number] UNIT/GM External Powder (Nystop) Apply topically to affected area 2 times a day . 60 g 2 10/30/2021 Active Citracal Petites/Vitamin D 200-250 MG-UNIT Oral Tablet (Calcium Citrate-Vitamin D) Take by mouth 2 Tablets 2 times a day . 0 Active Hospital, Clinic, or Other Facility Administered Medication Ordered Dose Route Frequency Start Date End Date Status vitamin b-12 (Cyanocobalamin) inj 1,000 mcgIndications:Intestinal postoperative nonabsorption 1000 mcg IM [id number] 09/10/2022 11/04/19 24 Active documented as of this encounter (statuses as of 04/24/2023) Active Problems Problem Noted Date Hx of melanoma in situ 08/12/2022 Overview: Early MIS/severely atypical nevus (central upper back 08/12) Hx of nonmelanoma skin cancer 07/31/2021 Overview: basal cell carcinoma (R nasal ala 06/2020) Body mass index (BMI) of 40.0 to 44.9 in adult 04/30/2021 Overview: Per Obesity protocol - Per Obesity protocol - Per Obesity protocol - Pre-operative examination 09/22/2020 Prediabetes 07/03/2020 Overview: Per Prediabetes protocol Depression with anxiety 06/21/2020 Iron deficiency anemia 12/18/2018 Thalassemia trait documented as of this encounter (statuses as of 04/24/2023) Resolved Problems Problem Noted Date Resolved Date Body mass index (BMI) of 45.0 to 49.9 in adult 0 04/02/2021 05/03/2021 Overview: Per Obesity protocol - Per Obesity protocol - Body mass index (BMI) of 50.0 to 59.9 in adult 0 11/28/2020 04/05/2021 Overview: Per Obesity protocol - Anemia 12/18/2018 02/22/2020 BMI 60.0-69.9, adult 11/30/2018 11/30/2020 Overview: Per Obesity protocol #1 Obesity, morbid (more than 1 00 lbs over ideal weight or BMI > 40) 05/26/2013 12/02/2018 Overview: Per Obesity protocol #1 Acute sinusitis 03/24/2012 05/05/2012 Acute sinusitis 11/11/2011 05/05/2012 Chronic rhinitis 06/08/2011 02/22/2020 Acute bronchitis, complicated 06/08/2011 Cough 06/08/2011 05/05/2012 Allergic rhinitis 04/03/2011 07/18/2020 Nausea 04/03/2011 05/05/2012 Overview: ICD-10 update of inactive term Malaise and fatigue 05/01/2010 02/22/2020 Unspecified viral infection, in conditions classified elsewhere and of unspecified site 05/01/2010 01/18/2011 Obesity, morbid (more than 1 00 lbs over ideal weight or BMI > 40) 01/02/2010 05/05/2012 Overview: Per Obesity Protocol, #19 ICD-10 update of inactive term Other iron deficiency anemia 07/10/200910/2019 Overview: ICD-10 update of inactive term influenza type A 05/19/2009 08/28/2009 Overview: Influenza type A positive nasal swab 05/19/09 Other known or suspected fet al abnormality, not elsewhere classified, affecting management of mother, antepartum condition or complication 02/24/2009 02/27/2009 ADVANCE DIRECTIVE INFORMATION 02/23/2009 Overview: Pt states that she has a living will. Advised to bring copy at next visit. Anemia of mother, complicati ng , childbirth, or the puerperium, unspecified as to episode of care(648.20) 01/13/2009 08/28/2009 Overview: Abnormal CBC at NOB visit, additional labs ordered to assess. Normal hemoglobin pattern noted, discuss at next visit-discussed; message to Dr. Castillo 02/02 for further advice Per disability hearing officer 06/12: begin ferrous sulfate 325mg TID; repeat CBC q 2-3 weeks until delivery Repeat CBC 2-3 mths PP or sooner if pt symptomatic. May f/u with hem PP. Obtained 06/27: 8.7 Hematology consult 07/10: pt to complete further bloodwork for alpha thalessemia trait, pt to begin OTC FeSO4 TID Hg 08/10 = 8.5 Bacterial infection due to Streptococcus, group B 01/13/2009 08/28/2009 Overview: GBS UTI at NOB visit. Rx placed, needs NAYA-obtained 02/02-+GBS-Rx for Pen V started 02/06-needs NAYA-obtained 02/27/09 IV abx in labor Trichomonal vaginitis 01/13/2009 08/28/2009 Overview: Found on NOB pap smear. Rx placed for 2g Flagyl, advised partner needs to be treated. Pt finished abx, partner was treated NAYA next visit-negative Pre-eclampsia, mild, delivered 2009 0 08/28/2009 Overview: History of preeclampsia with previous . 24hr urine and baseline labs ordered- all WNL Encounter for supervision of other normal pregna ncy 01/06/2009 08/28/2009 Overview: History of preeclampsia with prior , delivered at 38wk. Baseline 24 hour urine at NOB visit-0.173grams ICD-10 update of inactive term History of section complicating pregnan cy 01/06/2009 08/28/2009 Overview: Vertical skin c/s with previous . Aware of need for repeat c/s this . Pt states that uterine incision in transverse and OR records confirm Morbid obesity, BMI not known 07/10/2007 Overview: Early glucola ordered-wnl Has been seeing mixer operator hot metal prior to . ADJ DISORDER W/DEPRES MOOD 04/10/200608/28 Overview: Stopped Effexor through PCP, doing well Monitor throughout IRON DEFIC ANEMIA NOS 03/25/2006 06/09/2009 Overview: Not taking fe supp currently Normal , first 09/16/2001 05/01/20 02 OVERWEIGHT 09/16/2001 02/27/2009 documented as of this encounter (statuses as of 04/24/2023) Immunizations Name Administration Dates Next Due PPD 03/14/2016 Seasonal Influenza, Split, I IV3, With Preserve, Inj 04/24/2013,04/15/2012,05/21/2011, 0 10 TD - Tetanus/Diptheria (ADULT) 07/21/2000 TDAP (age 11 and older)(Adacel) 03/06/2011 documented as of this encounter Social History Tobacco Use Types Packs/Day Years Used Date Smoking Tobacco: Never Smokeless Tobacco: Never Tobacco Cessation:Counseling Given: Not Answered Alcohol Use Standard Drinks/Week Comments No 0 (1 standard drink = 0.6 oz pur e alcohol) Sex Assigned at Date Recorded Not on file Job Start Date Occupation Industry Not on file Not on file Not on file documented as of this encounter Last Filed Vital Signs Vital Sign Reading Time Taken Comments Blood Pressure 105/53 04/24/2023 2:14 PM EDT Pulse 65 04/24/2023 2:14 PM EDT Temperature 37.2 C (98.9 F) 04/24/2023 2:14 PM ED T Respiratory Rate 20 04/24/2023 2:14 PM EDT Oxygen Saturation - - Inhaled Oxygen Concentration - - Weight 89.8 kg (198 lb) 04/24/2023 2:14 PM EDT Height - - Body Mass Index 32.95 09/10/2022 1:48 PM EST documented in this encounter Functional Status [...] or making decisions? (5 years old or older No 10/04/2020 documented as of this encounter Nursing Notes * Deepthi Fox RN - 04/24/2023 2:17 PM EDT Administrations This Visit vitamin b-12 (Cyanocobalamin) inj 1,000 mcg Admin Date 04/24/2023 Action Given Dose 1,000 mcg Route Intramuscular Administered By Deepthi Fox RN documented in this encounter Plan of Treatment Upcoming Encounters Date Type Specialty Care Team Description 07/25/2023 Nurse Only Gastroenterology [place], Nurse Gi Nutrition [facility] [address] [facility] [place] [address] 08/12/2023 Office Visit Dermatology Lesly Velazquez PA-C [address] [place] [address] [place] [address] 08/19/2023 Office Visit Hematology Oncology Rhoda Lerma CRNP [address] [place] [phone] Health Maintenance Due Date Last Done Comments [...] Additional history exists Lipid Panel 09/10/2027 09/10/2022, 0 03/2022, 03/05/2021, Additional history exists GARDASIL-HPV IMMUNIZATION [...] nonabsorption- Primary Other and unspecified postsurgical nonabsorption S/P gastric bypass Bariatric surgery status Status post gastric bypass for obesity Bariatric surgery status documented in this encounter Administered Medications Active Administered Medications - up to 3 most recent administrations Medication Order MAR Action Action Date Dose Rate Site vitamin b-12 (Cyanocobalamin) inj 1,000 mcg 1,000 mcg, Intramuscular, [id number], First dose on Fri09/10/22 at 1500, Last dose on Fri08/12/23 at 1500, For 5 doses Given 04/24/2023 2:15 PM EDT 1,000 mcg Deltoid Left Upper documented in this encounter Advance [...] patients wishes and were consensually agreed upon. Care Teams Grants Director Relationship Specialty Start Date End Date Thomas Toledo DO [address] [place] [address] PCP - General Family Medicine 10/15/21 documented as of this encounter
--- OUTSIDE RECORDS SUMMARY | 2023-08-31 01:05 | External Medical Summary | Summary of Care ---
Author Name Unknown Organization [facility] Address [address] [place] [address] Phone [phone] Care Team Providers Care Prototyper Name Role Phone Thomas Toledo DO Primary Care Provider Encounter Details Date Type Department Care Team Description 03/12/2023 Orders Only Outcomes Research Department [address] [place] [address] [facility] Other*[id number] Allergies Active Allergy Reactions Severity Noted Date Comments Ferric Derisomaltose 08/07/2021 Approx 5 min into infusion, pt flushed, felt like passing out, chest heavy. Given solucortef which resolved symptoms Pollen Other (Please comment) High 12/05/2014 documented as of this encounter (statuses as of 03/12/2023) Medications Medication Sig Dispensed Refills Start Date [...] Take by mouth . 0 Active Nystatin 476331 UNIT/GM External Powder (Nystop) Apply topically to [...] 1,000 mcgIndications:Intestinal postoperative nonabsorption 1000 mcg IM [id number] 11/25/2021 04/13/20 23 Active vitamin b-12 (Cyanocobalamin) inj 1,000 mcgIndications:Intestinal postoperative nonabsorption 1000 mcg IM [id number] 09/10/2022 11/04/19 24 Active documented as of this encounter (statuses as of 03/12/2023) Active Problems Problem Noted Date Hx of [...] as of this encounter (statuses as of 03/12/2023) Resolved Problems Problem Noted Date Resolved Date [...] Dr. Castillo 02/02 for further advice Per dye beck reel operator 06/12: begin ferrous sulfate 325mg TID; repeat [...] Overview: Early glucola ordered-wnl Has been seeing business proposal rep prior to . ADJ DISORDER W/DEPRES MOOD 04/10/200608/28 Overview: Stopped Effexor through PCP, doing well Monitor throughout IRON DEFIC ANEMIA NOS 03/25/2006 06/09/2009 Overview: Not taking fe supp currently Normal , first 09/16/2001 05/01/20 02 OVERWEIGHT 09/16/2001 02/27/2009 documented as of this encounter (statuses as of 03/12/2023) Immunizations Name Administration Dates Next Due PPD [...] on file documented as of this encounter Functional Status Functional Status Response [...] No 10/04/2020 documented as of this encounter Plan of Treatment Upcoming Encounters Date Type Specialty Care Team Description 04/29/2023 Nurse Only Gastroenterology [place], Nurse Gi Nutrition [facility] [address] [facility] [place] [address] 08/12/2023 Office Visit Dermatology Lesly Velazquez PA-C [address] [place] [address] [place] [address] 08/19/2023 Office Visit Hematology Oncology Rhoda Lerma CRNP [address] [place] [phone] Scheduled Orders Name Type Priority Associated Diagnoses Orde r Schedule MYCODE SUBSEQUENT ADULT Lab Routine My[facility] Research Other*[id number] Every 6 Months for 2 Occurrences starting 03/12/2023 until 03/31/2024 Health Maintenance Due Date Last Done Comments Hepatitis B (1 of 3 - 3-dose series) 1975 COVID-19 Vaccine (#1) 1975 Hepatitis C Screening 01/11/1994 HPV/Co-Test 01/11/2006 Cervical Cancer Screening 07/04/2013 Pap Smear 07/04/2013 07/04/2010, 06/20, 01/06/2009, Additional history exists Cologuard 01/11/2021 Colonoscopy 01/11/2021 Colorectal Cancer Screening 01/11/2021 Fecal Occult Blood Test 01/11/2021 05/06/1996 Sigmoidoscopy 01/11/2021 Depression Screening, Annual for Pts 12 and Over 02/21/2021 02/22/2020 DTaP,Tdap,and Td Vaccines (2 - [...] as of this encounter Visit Diagnoses Diagnosis [facility] Research Other*[id number] documented in this encounter Advance Directives Latest [...] and were consensually agreed upon. Care Teams Prototyper Relationship Specialty Start Date End Date Thomas Toledo DO [address] [place] [address] PCP - General Family Medicine 10/15/21 documented as of this encounter
[2023-08-31] MEDS: MoRPHine SULFATE 4 MG/ML 1 ML CARP\\VIAL IV PRN (01:27)
[2023-08-31] MEDS: ONDANSETRON INJ 2 MG/ML 2 ML VIAL IV STA (01:27)
[2023-08-31 01:37] LABS: Basophils # (auto) 0.05 K/uL (0.00-0.20); Basophils % (auto) 0.7 %; Eosinophils # (auto) 0.27 K/uL (0.00-0.50); Hematocrit (blood only) 39.3 % (37.0-47.0); Hemoglobin 12.4 g/dl (12.0-16.0); Immature Granulocytes # (auto) 0.02 K/uL (0.01-0.20); Immature Granulocytes % (auto) 0.3 %; Lymphocytes # (auto) 1.96 K/uL (1.20-3.40); Lymphocytes % (auto) 29.1 %; Mean Corpuscular Hemoglobin 28.2 pg (25.0-34.0); Mean Corpuscular Hgb Conc 31.6 g/dL (32.0-36.0); Mean Corpuscular Volume 89.5 fL (80.0-100.0); Mean Platelet Volume 10.6 fL (9.4-12.4); Monocytes # (auto) 0.29 K/uL (0.11-0.59); Monocytes % (auto) 4.3 %; Neutrophils # (auto) 4.14 K/uL (1.40-6.50); Neutrophils % (auto) 61.6 %; Platelet Count 256 K/uL (130-400); RDW Coefficient of Variation 12.7 % (11.5-14.5); RDW Standard Deviation 42.1 fL (36.4-46.3); Red Blood Count 4.39 M/uL (4.20-5.40); White Blood Count 6.73 K/ul (4.8-10.8)
[2023-08-31 01:54] LABS: Albumin Globulin Ratio 1.5 (0.9-2); Albumin Level 4.5 gm/dl (3.4-5.0); Bilirubin,Total 0.4 mg/dl (0.2-1.0); Calcium 9.5 mg/dl (8.6-10.3); Est GFR (African American) 115.6 ml/min; Est GFR (Non-African American) 99.7 ml/min; Globulin 3.1 gm/dl (2.5-4.0); Potassium 3.8 mmol/L (3.5-5.1); Total Protein 7.6 gm/dl (6.0-8.3)
[2023-08-31 01:55] LABS: Pregnancy Test, Serum Negative (Negative)
[2023-08-31 02:01] LABS: Troponin I High Sensitivity 4.8 pg/ml (0-14)
--- NOTE | 2023-08-31 02:14 | CT Scan Report ---
Exam(s): CT ABDOMEN + PELVIS Without Contrast EXAM: CT Abdomen and Pelvis Without Intravenous Contrast CLINICAL HISTORY: Pain. TECHNIQUE: Axial computed tomography images of the abdomen and pelvis without intravenous contrast. CTDI is 23.97 mGy and DLP is 1225.27 mGy-cm. Automated exposure control was utilized for the study. A dose lowering technique was utilized adhering to the principles of ALARA. COMPARISON: No relevant prior studies available. FINDINGS: Lung bases: Unremarkable. No mass. No consolidation. ABDOMEN: Liver: Unremarkable. Gallbladder and bile ducts: Cholecystectomy. No ductal dilation. Pancreas: Unremarkable. No ductal dilation. Spleen: Unremarkable. No splenomegaly. Adrenals: Unremarkable. No mass. Kidneys and ureters: Unremarkable. No obstructing stones. No hydronephrosis. Stomach and bowel: There is thickening of the stomach wall with adjacent inflammatory stranding. There are surgical changes of the stomach and small bowel. No obstruction. PELVIS: Appendix: Normal appendix. Bladder: Thickening of the urinary bladder wall could relate to nondistention or cystitis. No stones. Reproductive: Unremarkable as visualized. ABDOMEN and PELVIS: Intraperitoneal space: Unremarkable. No free air. No significant fluid collection. Bones/joints: There are degenerative changes of the spine. No acute fracture. No dislocation. Soft tissues: Unremarkable. Vasculature: Unremarkable. No abdominal aortic aneurysm. Lymph nodes: Unremarkable. No enlarged lymph nodes. IMPRESSION: 1. There is thickening of the stomach wall with adjacent inflammatory stranding. This could be infectious, inflammatory neoplastic. 2. Thickening of the urinary bladder wall could relate to nondistention or cystitis. Electronically signed by: Maira Chamberlain MD 08/31/23 02:13 AM
[2023-08-31] MEDS ORDERED: PANTOPRAZOLE BOLUS/DRIP IV STA (02:46)
[2023-08-31] MEDS: PANTOprazole 40 MG in SYRINGE 0 ML IV ONE (02:59)
[2023-08-31] MEDS: PANTOprazole 80 MG in DEXTROSE 5% 100 ML IV ONE (02:59)
[2023-08-31 03:13] LABS: Appearance Urine Clear (Clear); Bilirubin Urine Negative (Negative); Blood Urine Negative (Negative); Color Urine Yellow; Glucose Urine UA Negative (Negative); Ketones Urine Negative (Negative); Leukocyte Esterase Urine Negative (Negative); Nitrite Urine Negative (Negative); Protein Urine Negative (Negative); Specific Gravity Urine 1.014 (1.000-1.030); Urobilinogen Urine Negative (Negative); pH Urine 5.5 (4.5-7.5)
--- NOTE | 2023-08-31 04:12 | History & Physical Report ---
Date of Service August 31, 2023 Assessment & Plan (1) Gastritis: Plan: hx gastric bypass prediabetes, hemoglobin A1c of 5.3 last year iron deficiency anemia, normal hemoglobin, periodic outpatient Venofer injections anxiety/mood disorder, stable off maintenance medications OBS GMF Analgesia PPI GI consult re: gastritis N.p.o. for possible endoscopy if recommended by service DVT prophylaxis. SCDs Full code Text document was generated using [employer] voice recognition software. It may contain grammatical or spelling errors. Kindly contact undersigned for clarification of any documentation item in question. History of Present Illness Chief Complaint: Left-sided abdominal pain Primary Care Provider: [place] [facility] Medicine History obtained from patient, family, and records. Medical history significant for gastric bypass, prediabetes, iron deficiency anemia, thalassemia trait as per records, anxiety/mood disorder. Last confinement 2009 for repeat section. Few days history achy left upper abdominal pain under the rib area. No nausea, no vomiting, no hematemesis/coffee-ground emesis/black/bloody stools. Denies OTC NSAID intake. No unusual weight loss. Medical History as above Surgical History : Gastric bypass, cholecystectomy, tonsillectomy/adenoidectomy, scalp cyst removal, section Family History : Cervical cancer, heart disease Personal/Social history : Non-smoker, no EtOH intake, school cafeteria employee Allergies Allergy/AdvReac Type Severity Reaction Status Date / Time No Known Allergies Allergy Unknown Verified 08/31/23 02:11 Home Medications Medication Instructions Recorded Confirmed Type calcium carbonate 200 mg-vitamin 2 cap PO BID 08/31/23 08/31/23 History D3 10 mcg (400 unit) capsule cholecalciferol (vitamin D3) 25 25 mcg PO DAILY 08/31/23 08/31/23 History mcg (1,000 unit) tablet (Vitamin D3) cyanocobalamin (vitamin B-12) 1,000 mcg IM .EVERY 3 MONTHS 08/31/23 08/31/23 History 1,000 mcg/mL injection solution pediatric multivitamin no.76 1 tab PO BID 08/31/23 08/31/23 History (Flintstones Complete chewable tablet) vitamin A 3,000 mcg (10,000 unit) 3,000 mcg PO DAILY 08/31/23 08/31/23 History capsule Past Med/Surg History Social History Smoking Status: Never smoker Hx Alcohol Use: No Hx Substance Use: No Preferred Language: Malay Communication Ability: Effective Solid Waste Facility Supervisor Required: No Beliefs That Will Affect Care: None Current Living Situation: Alone Other Information That Helps Us Care for You: No Feels Safe at Home: Yes Safety Concerns: Feels Safe At This Time Assistive Devices: None Review of Systems Review of Systems: As per HPI, all other systems reviewed and negative Physical Exam Physical Exam: GENERAL: Comfortable, pleasant, obese, no respiratory distress SKIN: Normal color, warm HEENT: [place] palpebral conjunctivae, no ptosis, dry buccal mucosa NECK : Supple, no tenderness CHEST : CTA, no tenderness HEART : RRR, systolic murmur ABDOMEN: Some distention, epigastric tenderness EXTREMITIES : Minimal LE swelling, no LE tenderness, no other conspicuous deformities noted NEUROLOGIC : Coherent, no facial asymmetry, no other gross focality Results & Data Results & Data Vital Signs (Past 12 Hours) Vital Signs Temp Pulse Resp BP BP Pulse Ox O2 Del Method 08/31/23 02:30 59 L 19 140/76 97 Room Air 08/31/23 02:00 57 L 19 137/75 97 Room Air 08/31/23 01:40 64 19 100 Room Air 08/31/23 01:39 66 08/31/23 01:30 147/89 H 08/31/23 01:04 36.6 C 63 18 171/95 H 100 Room Air Laboratory Results Laboratory Results WBC 6.73 K/ul (4.8-10.8) 08/31/23 01:20 RBC 4.39 M/uL (4.20-5.40) 08/31/23 01:20 Hgb 12.4 g/dl (12.0-16.0) 08/31/23 01:20 Hct 39.3 % (37.0-47.0) 08/31/23 01:20 MCV 89.5 fL (80.0-100.0) 08/31/23 01:20 MCH 28.2 pg (25.0-34.0) 08/31/23 01:20 MCHC 31.6 g/dL (32.0-36.0) L 08/31/23 01:20 RDW Std Deviation 42.1 fL (36.4-46.3) 08/31/23 01:20 RDW Coeff of Jose Juan 12.7 % (11.5-14.5) 08/31/23 01:20 Plt Count 256 K/uL (130-400) 08/31/23 01:20 MPV 10.6 fL (9.4-12.4) 08/31/23 01:20 Immature Gran % (Auto) 0.3 % 08/31/23 01:20 Neut % (Auto) 61.6 % 08/31/23 01:20 Lymph % (Auto) 29.1 % 08/31/23 01:20 [place] % (Auto) 4.3 % 08/31/23 01:20 Eos % (Auto) 4.0 % 08/31/23 01:20 Baso % (Auto) 0.7 % 08/31/23 01:20 Neut # (Auto) 4.14 K/uL (1.40-6.50) 08/31/23 01:20 Lymph # (Auto) 1.96 K/uL (1.20-3.40) 08/31/23 01:20 [place] # (Auto) 0.29 K/uL (0.11-0.59) 08/31/23 01:20 Eos # (Auto) 0.27 K/uL (0.00-0.50) 08/31/23 01:20 Baso # (Auto) 0.05 K/uL (0.00-0.20) 08/31/23 01:20 Immature Gran # (Auto) 0.02 K/uL (0.01-0.20) 08/31/23 01:20 Sodium 139 mmol/L (136-145) 08/31/23 01:20 Potassium 3.8 mmol/L (3.5-5.1) 08/31/23 01:20 Chloride 105 mmol/L (98-107) 08/31/23 01:20 Carbon Dioxide 26 mmol/L (21-32) 08/31/23 01:20 Anion Gap 8 (3-11) 08/31/23 01:20 BUN 18 mg/dl (6-23) 08/31/23 01:20 Creatinine 0.72 mg/dl (0.6-1.2) 08/31/23 01:20 Est Cr Clr Drug Dosing 107.0 ml/min 08/31/23 01:20 Est GFR ( Amer) 115.6 ml/min 08/31/23 01:20 Est GFR (Non-Af Amer) 99.7 ml/min 08/31/23 01:20 BUN/Creatinine Ratio 25.0 (10-20) H 08/31/23 01:20 Glucose 91 mg/dl (70-99(Fasting)) 08/31/23 01:20 Calcium 9.5 mg/dl (8.6-10.3) 08/31/23 01:20 Magnesium 2.0 mg/dl (1.7-2.4) 08/31/23 01:20 Total Bilirubin 0.4 mg/dl (0.2-1.0) 08/31/23 01:20 AST 13 U/L (13-39) 08/31/23 01:20 ALT 13 U/L (7-52) 08/31/23 01:20 Alkaline Phosphatase 106 U/L (34-104) H 08/31/23 01:20 Troponin I High Sens 4.8 pg/ml (0-14) 08/31/23 01:20 Total Protein 7.6 gm/dl (6.0-8.3) 08/31/23 01:20 Albumin 4.5 gm/dl (3.4-5.0) 08/31/23 01:20 Globulin 3.1 gm/dl (2.5-4.0) 08/31/23 01:20 Albumin/Globulin Ratio 1.5 (0.9-2) 08/31/23 01:20 Lipase 28 U/L (11-82) 08/31/23 01:20 HCG, Qual Negative (Negative) 08/31/23 01:20 Urine Color Yellow 08/31/23 03:05 Urine Appearance Clear (Clear) 08/31/23 03:05 Urine pH 5.5 (4.5-7.5) 08/31/23 03:05 Ur Specific [place] 1.014 (1.000-1.030) 08/31/23 03:05 Urine Protein Negative (Negative) 08/31/23 03:05 Urine Glucose (UA) Negative (Negative) 08/31/23 03:05 Urine Ketones Negative (Negative) 08/31/23 03:05 Urine Blood Negative (Negative) 08/31/23 03:05 Urine Nitrite Negative (Negative) 08/31/23 03:05 Urine Bilirubin Negative (Negative) 08/31/23 03:05 Urine Urobilinogen Negative (Negative) 08/31/23 03:05 Ur Leukocyte Esterase Negative (Negative) 08/31/23 03:05 Impressions Abdomen/Pelvis CT 08/31/23 01:20 Exam(s): CT ABDOMEN + PELVIS Without Contrast EXAM: CT Abdomen and Pelvis Without Intravenous Contrast CLINICAL HISTORY: Pain. TECHNIQUE: Axial computed tomography images of the abdomen and pelvis without intravenous contrast. CTDI is 23.97 mGy and DLP is 1225.27 mGy-cm. Automated exposure control was utilized for the study. A dose lowering technique was utilized adhering to the principles of ALARA. COMPARISON: No relevant prior studies available. FINDINGS: Lung bases: Unremarkable. No mass. No consolidation. ABDOMEN: Liver: Unremarkable. Gallbladder and bile ducts: Cholecystectomy. No ductal dilation. Pancreas: Unremarkable. No ductal dilation. Spleen: Unremarkable. No splenomegaly. Adrenals: Unremarkable. No mass. Kidneys and ureters: Unremarkable. No obstructing stones. No hydronephrosis. Stomach and bowel: There is thickening of the stomach wall with adjacent inflammatory stranding. There are surgical changes of the stomach and small bowel. No obstruction. PELVIS: Appendix: Normal appendix. Bladder: Thickening of the urinary bladder wall could relate to nondistention or cystitis. No stones. Reproductive: Unremarkable as visualized. ABDOMEN and PELVIS: Intraperitoneal space: Unremarkable. No free air. No significant fluid collection. Bones/joints: There are degenerative changes of the spine. No acute fracture. No dislocation. Soft tissues: Unremarkable. Vasculature: Unremarkable. No abdominal aortic aneurysm. Lymph nodes: Unremarkable. No enlarged lymph nodes. IMPRESSION: 1. There is thickening of the stomach wall with adjacent inflammatory stranding. This could be infectious, inflammatory neoplastic. 2. Thickening of the urinary bladder wall could relate to nondistention or cystitis. Electronically signed by: Maira Chamberlain MD 08/31/23 02:13 AM Diagnostic Findings EKG as per my interpretation : Rate 60, NSR, normal axis, no ischemia
[2023-08-31] MEDS ORDERED: MoRPHine SULFATE 4 MG/ML 1 ML CARP\\VIAL IV PRN (04:16)
[2023-08-31] MEDS ORDERED: PROMETHAZINE HCL 12.5 MG in SODIUM CHLORIDE 0.9% 50 ML IV PRN (04:16)
[2023-08-31] MEDS ORDERED: traMADol HCL 50 MG TABLET PO PRN (04:16)
[2023-08-31] MEDS ORDERED: LORazepam 0.5 MG TAB PO PRN (04:16)
[2023-08-31] MEDS: PANTOprazole 40 MG in DEXTROSE 5% MINI-B 100 ML IV SCH (04:43)
[2023-08-31] MEDS: LACTATED RINGER'S 1,000 ML IV STA (05:54)
--- NOTE | 2023-08-31 07:15 | Electrocardiogram Report ---
Test Reason : Blood Pressure : / mmHG Vent. Rate : 061 BPM Atrial Rate : 061 BPM P-R Int : 160 ms QRS Dur : 106 ms QT Int : 412 ms P-R-T Axes : 062 076 071 degrees QTc Int : 414 ms Normal sinus rhythm with sinus arrhythmia Normal ECG When compared with ECG of 15-AUG-2016 08:24, No significant change was found Confirmed by Richmond Middleton ([id number]) on 08/31/2023 7:15:36 AM Referred By: REFERRED SELF Confirmed By:Fox Middleton
[2023-08-31] MEDS: MULTIVITAMIN CHEWABLE TAB PO SCH (08:13)
--- NOTE | 2023-08-31 10:24 | Gastrointestinal Consultation ---
Date of Consultation August 31, 2023 Assessment & Plan (1) Gastritis: She has upper abdominal pain and a CT that suggests gastritis. I doubt it is a malignancy since she had her bypass three years ago. I suggested to her that we arrange endoscopy for tomorrow but she would prefer to go home and arrange this as an outpatient. I would discharge her on PPI and she will call her family doctor to arrange EGD History of Present Illness Reason for Consultation: abdominal pain Attending Physician: Bryant Collazo MD History of Present Illness 48 year old female with a few days of left sided abdominal pain. She describes it as a cramping pain. She does not vomit with it. Bowel movements do not help. She feels "gassy" but passing gas doesn't help. She denies NSAID usage. She had a CT scan that showed "thickened gastric walll". Last night when she came in she says the pain was 8 of 10. Today it is almost gone Allergies Allergy/AdvReac Type Severity Reaction Status Date / Time No Known Allergies Allergy Unknown Verified 08/31/23 02:11 Home Medications Medication Instructions Recorded Confirmed Type calcium carbonate 200 mg-vitamin 2 cap PO BID 08/31/23 08/31/23 History D3 10 mcg (400 unit) capsule cholecalciferol (vitamin D3) 25 25 mcg PO DAILY 08/31/23 08/31/23 History mcg (1,000 unit) tablet (Vitamin D3) cyanocobalamin (vitamin B-12) 1,000 mcg IM .EVERY 3 MONTHS 08/31/23 08/31/23 History 1,000 mcg/mL injection solution pediatric multivitamin no.76 1 tab PO BID 08/31/23 08/31/23 History (Flintstones Complete chewable tablet) vitamin A 3,000 mcg (10,000 unit) 3,000 mcg PO DAILY 08/31/23 08/31/23 History capsule Patient History Social History Smoking Status: Never smoker Hx Alcohol Use: No Hx Substance Use: No Preferred Language: Belarusian Communication Ability: Effective Mechanical Press Operator Required: No Beliefs That Will Affect Care: None Current Living Situation: Alone Other Information That Helps Us Care for You: No Feels Safe at Home: Yes Safety Concerns: Feels Safe At This Time Assistive Devices: None Review of Systems Review of Systems: All systems reviewed & are unremarkable except as noted in HPI & below Physical Exam Constitutional: WD/WN, vitals as above Neck: trachea midline, no thyromegaly Respiratory: normal respiratory effort, lungs clear to auscultation Cardiovascular: RRR, no murmur, no edema Gastrointestinal (Abdomen): Inspection/Auscultation: abdomen normal to inspection Percussion/Palpation: + abdomen tender (left upper abdomen) and ab domen soft; no hepatosplenomegaly Results & Data Vital Signs (Past 12 Hours) Vital Signs Temp Pulse Pulse Resp BP BP Pulse Ox 08/31/23 06:54 36.4 C L 52 L 16 96/61 L 98 08/31/23 05:30 36.6 C 60 16 99/65 L 98 08/31/23 04:00 67 20 117/64 98 08/31/23 03:30 58 L 20 122/68 98 08/31/23 02:30 59 L 19 140/76 97 08/31/23 02:00 57 L 19 137/75 97 08/31/23 01:40 64 19 100 08/31/23 01:39 66 08/31/23 01:30 147/89 H 08/31/23 01:04 36.6 C 63 18 171/95 H 100 O2 Del Method 08/31/23 06:54 Room Air 08/31/23 05:30 Room Air 08/31/23 04:00 08/31/23 03:30 08/31/23 02:30 Room Air 08/31/23 02:00 Room Air 08/31/23 01:40 Room Air 08/31/23 01:39 08/31/23 01:30 08/31/23 01:04 Room Air Laboratory Results Laboratory Results WBC 6.73 K/ul (4.8-10.8) 08/31/23 01:20 RBC 4.39 M/uL (4.20-5.40) 08/31/23 01:20 Hgb 12.4 g/dl (12.0-16.0) 08/31/23 01:20 Hct 39.3 % (37.0-47.0) 08/31/23 01:20 MCV 89.5 fL (80.0-100.0) 08/31/23 01:20 MCH 28.2 pg (25.0-34.0) 08/31/23 01:20 MCHC 31.6 g/dL (32.0-36.0) L 08/31/23 01:20 RDW Std Deviation 42.1 fL (36.4-46.3) 08/31/23 01:20 RDW Coeff of Jose Juan 12.7 % (11.5-14.5) 08/31/23 01:20 Plt Count 256 K/uL (130-400) 08/31/23 01:20 MPV 10.6 fL (9.4-12.4) 08/31/23 01:20 Immature Gran % (Auto) 0.3 % 08/31/23 01:20 Neut % (Auto) 61.6 % 08/31/23 01:20 Lymph % (Auto) 29.1 % 08/31/23 01:20 [place] % (Auto) 4.3 % 08/31/23 01:20 Eos % (Auto) 4.0 % 08/31/23 01:20 Baso % (Auto) 0.7 % 08/31/23 01:20 Neut # (Auto) 4.14 K/uL (1.40-6.50) 08/31/23 01:20 Lymph # (Auto) 1.96 K/uL (1.20-3.40) 08/31/23 01:20 [place] # (Auto) 0.29 K/uL (0.11-0.59) 08/31/23 01:20 Eos # (Auto) 0.27 K/uL (0.00-0.50) 08/31/23 01:20 Baso # (Auto) 0.05 K/uL (0.00-0.20) 08/31/23 01:20 Immature Gran # (Auto) 0.02 K/uL (0.01-0.20) 08/31/23 01:20 Sodium 139 mmol/L (136-145) 08/31/23 01:20 Potassium 3.8 mmol/L (3.5-5.1) 08/31/23 01:20 Chloride 105 mmol/L (98-107) 08/31/23 01:20 Carbon Dioxide 26 mmol/L (21-32) 08/31/23 01:20 Anion Gap 8 (3-11) 08/31/23 01:20 BUN 18 mg/dl (6-23) 08/31/23 01:20 Creatinine 0.72 mg/dl (0.6-1.2) 08/31/23 01:20 Est Cr Clr Drug Dosing 107.0 ml/min 08/31/23 01:20 Est GFR ( Amer) 115.6 ml/min 08/31/23 01:20 Est GFR (Non-Af Amer) 99.7 ml/min 08/31/23 01:20 BUN/Creatinine Ratio 25.0 (10-20) H 08/31/23 01:20 Glucose 91 mg/dl (70-99(Fasting)) 08/31/23 01:20 Calcium 9.5 mg/dl (8.6-10.3) 08/31/23 01:20 Magnesium 2.0 mg/dl (1.7-2.4) 08/31/23 01:20 Total Bilirubin 0.4 mg/dl (0.2-1.0) 08/31/23 01:20 AST 13 U/L (13-39) 08/31/23 01:20 ALT 13 U/L (7-52) 08/31/23 01:20 Alkaline Phosphatase 106 U/L (34-104) H 08/31/23 01:20 Troponin I High Sens 4.8 pg/ml (0-14) 08/31/23 01:20 Total Protein 7.6 gm/dl (6.0-8.3) 08/31/23 01:20 Albumin 4.5 gm/dl (3.4-5.0) 08/31/23 01:20 Globulin 3.1 gm/dl (2.5-4.0) 08/31/23 01:20 Albumin/Globulin Ratio 1.5 (0.9-2) 08/31/23 01:20 Lipase 28 U/L (11-82) 08/31/23 01:20 HCG, Qual Negative (Negative) 08/31/23 01:20 Urine Color Yellow 08/31/23 03:05 Urine Appearance Clear (Clear) 08/31/23 03:05 Urine pH 5.5 (4.5-7.5) 08/31/23 03:05 Ur Specific [place] 1.014 (1.000-1.030) 08/31/23 03:05 Urine Protein Negative (Negative) 08/31/23 03:05 Urine Glucose (UA) Negative (Negative) 08/31/23 03:05 Urine Ketones Negative (Negative) 08/31/23 03:05 Urine Blood Negative (Negative) 08/31/23 03:05 Urine Nitrite Negative (Negative) 08/31/23 03:05 Urine Bilirubin Negative (Negative) 08/31/23 03:05 Urine Urobilinogen Negative (Negative) 08/31/23 03:05 Ur Leukocyte Esterase Negative (Negative) 08/31/23 03:05 Impressions Abdomen/Pelvis CT 08/31/23 01:20 Exam(s): CT ABDOMEN + PELVIS Without Contrast EXAM: CT Abdomen and Pelvis Without Intravenous Contrast CLINICAL HISTORY: Pain. TECHNIQUE: Axial computed tomography images of the abdomen and pelvis without intravenous contrast. CTDI is 23.97 mGy and DLP is 1225.27 mGy-cm. Automated exposure control was utilized for the study. A dose lowering technique was utilized adhering to the principles of ALARA. COMPARISON: No relevant prior studies available. FINDINGS: Lung bases: Unremarkable. No mass. No consolidation. ABDOMEN: Liver: Unremarkable. Gallbladder and bile ducts: Cholecystectomy. No ductal dilation. Pancreas: Unremarkable. No ductal dilation. Spleen: Unremarkable. No splenomegaly. Adrenals: Unremarkable. No mass. Kidneys and ureters: Unremarkable. No obstructing stones. No hydronephrosis. Stomach and bowel: There is thickening of the stomach wall with adjacent inflammatory stranding. There are surgical changes of the stomach and small bowel. No obstruction. PELVIS: Appendix: Normal appendix. Bladder: Thickening of the urinary bladder wall could relate to nondistention or cystitis. No stones. Reproductive: Unremarkable as visualized. ABDOMEN and PELVIS: Intraperitoneal space: Unremarkable. No free air. No significant fluid collection. Bones/joints: There are degenerative changes of the spine. No acute fracture. No dislocation. Soft tissues: Unremarkable. Vasculature: Unremarkable. No abdominal aortic aneurysm. Lymph nodes: Unremarkable. No enlarged lymph nodes. IMPRESSION: 1. There is thickening of the stomach wall with adjacent inflammatory stranding. This could be infectious, inflammatory neoplastic. 2. Thickening of the urinary bladder wall could relate to nondistention or cystitis. Electronically signed by: Maira Chamberlain MD 08/31/23 02:13 AM
[2023-08-31] MEDS: SODIUM CHLORIDE 0.9% 500 ML IV ONE (12:44)
--- NOTE | 2023-08-31 14:08 | Hospitalist Progress Note ---
Date of Service August 31, 2023 Assessment & Plan (1) Gastritis: Plan: hx gastric bypass prediabetes, hemoglobin A1c of 5.3 last year iron deficiency anemia, normal hemoglobin, periodic outpatient Venofer injections anxiety/mood disorder, stable off maintenance medications Given IV Protonix at the ER Symptoms mostly resolved Evaluated by minilab operator Dr. Moon-recommend inpatient EGD tomorrow Patient appropriate for to perform EGD as an outpatient Already notified her GI provider to schedule for EGD Discharge on: Protonix 40 mg p.o. twice daily while awaiting EGD Instructions regarding dietary modifications given Follow-up with PCP in 1 week Follow-up with GI in 1 to 2 weeks DVT prophylaxis. SCDs Full code plan of care discussed with patient in detail and at length all questions answered she is understanding, agreeable, comfortable with the plan of care Admission and Anticipated Discharge Date Admission Date: August 31, 2023 Subjective Follow-up for abdominal pain, etc. Seen resting in bed, comfortable, not in distress States she feels much better than yesterday Epigastric pain is also much better No nausea or vomiting No hematochezia or melena Tolerating diet No other new symptoms States she is ready for discharge today Review of Systems Review of Systems: all noted and negative except for above Physical Exam Physical Exam: General- oriented x 3, not in distress, speaks in sentences with no effort or accessory muscle use Eyes- anicteric Neck- no JVD Lungs- clear breath sounds bilaterally, no rales/wheezes Heart- normal rate, regular rhythm; no murmurs Abdomen- normal bowel sounds, nondistended, soft, nontender Extremities- no pretibial edema, no calf tenderness Neuro- alert, oriented x 3; no gross focal neurologic deficits Skin- warm & dry Results & Data Results & Data Vital Signs (Past 12 Hours) Vital Signs Temp Pulse Pulse Resp BP BP Pulse Ox 08/31/23 13:44 36.4 C L 52 L 16 105/64 98 08/31/23 12:36 105/64 08/31/23 06:54 36.4 C L 52 L 16 96/61 L 98 08/31/23 05:30 36.6 C 60 16 99/65 L 98 08/31/23 04:00 67 20 117/64 98 08/31/23 03:30 58 L 20 122/68 98 08/31/23 02:30 59 L 19 140/76 97 O2 Del Method 08/31/23 13:44 08/31/23 12:36 08/31/23 06:54 Room Air 08/31/23 05:30 Room Air 08/31/23 04:00 08/31/23 03:30 08/31/23 02:30 Room Air all noted and reviewed including below
--- NOTE | 2023-08-31 14:59 | Discharge Summary ---
Discharge Summary Date of Service August 31, 2023 Notes For Next Care Provider Medication Changes From Visit Protonix 40 mg p.o. twice daily Admission HPI Per Admitting Provider History obtained from patient, family, and records. Medical history significant for gastric bypass, prediabetes, iron deficiency anemia, thalassemia trait as per records, anxiety/mood disorder. Last confinement 2009 for repeat section. Few days history achy left upper abdominal pain under the rib area. No nausea, no vomiting, no hematemesis/coffee-ground emesis/black/bloody stools. Denies OTC NSAID intake. No unusual weight loss. Medical History as above Surgical History : Gastric bypass, cholecystectomy, tonsillectomy/adenoidectomy, scalp cyst removal, section Family History : Cervical cancer, heart disease Personal/Social history : Non-smoker, no EtOH intake, school cafeteria employee Admission Exam Per Admitting Provider GENERAL: Comfortable, pleasant, obese, no respiratory distress SKIN: Normal color, warm HEENT: [place] palpebral conjunctivae, no ptosis, dry buccal mucosa NECK : Supple, no tenderness CHEST : CTA, no tenderness HEART : RRR, systolic murmur ABDOMEN: Some distention, epigastric tenderness EXTREMITIES : Minimal LE swelling, no LE tenderness, no other conspicuous deformities noted NEUROLOGIC : Coherent, no facial asymmetry, no other gross focality Principal Dx & Hospital Course #1 = Principal Diagnosis (1) Gastritis: hx gastric bypass prediabetes, hemoglobin A1c of 5.3 last year iron deficiency anemia, normal hemoglobin, periodic outpatient Venofer injections anxiety/mood disorder, stable off maintenance medications CT abdomen/pelvis: IMPRESSION: 1. There is thickening of the stomach wall with adjacent inflammatory stranding. This could be infectious, inflammatory neoplastic. 2. Thickening of the urinary bladder wall could relate to nondistention or cystitis. Given IV Protonix at the ER Symptoms mostly resolved Evaluated by clarifier operator helper Dr. Moon-recommend inpatient EGD tomorrow Patient appropriate for to perform EGD as an outpatient Already notified her GI provider to schedule for EGD Discharge on: Protonix 40 mg p.o. twice daily while awaiting EGD Instructions regarding dietary modifications given Follow-up with PCP in 1 week Follow-up with GI in 1 to 2 weeks DVT prophylaxis. SCDs Full code plan of care discussed with patient in detail and at length all questions answered she is understanding, agreeable, comfortable with the plan of care Discharge Exam General- oriented x 3, not in distress, speaks in sentences with no effort or accessory muscle use Eyes- anicteric Neck- no JVD Lungs- clear breath sounds bilaterally, no rales/wheezes Heart- normal rate, regular rhythm; no murmurs Abdomen- normal bowel sounds, nondistended, soft, nontender Extremities- no pretibial edema, no calf tenderness Neuro- alert, oriented x 3; no gross focal neurologic deficits Skin- warm & dry Updated Medication List Medication Instructions Recorded Confirmed Type calcium carbonate 200 mg-vitamin 2 cap PO BID 08/31/23 08/31/23 History D3 10 mcg (400 unit) capsule cholecalciferol (vitamin D3) 25 25 mcg PO DAILY 08/31/23 08/31/23 History mcg (1,000 unit) tablet (Vitamin D3) cyanocobalamin (vitamin B-12) 1,000 mcg IM .EVERY 3 MONTHS 08/31/23 08/31/23 History 1,000 mcg/mL injection solution pantoprazole 40 mg tablet,delayed 40 mg PO BID 30 days #60 tabs 08/31/23 Rx release (Protonix) pediatric multivitamin no.76 1 tab PO BID 08/31/23 08/31/23 History (Flintstones Complete chewable tablet) vitamin A 3,000 mcg (10,000 unit) 3,000 mcg PO DAILY 08/31/23 08/31/23 History capsule Hospital Stay Data Consultations 08/31/23 03:12 ED Decision to Admit Stat 08/31/23 05:35 Consult Gastroenterology Routine Diagnostic Imagining Performed Laboratory Results WBC 6.73 K/ul (4.8-10.8) 08/31/23 01:20 RBC 4.39 M/uL (4.20-5.40) 08/31/23 01:20 Hgb 12.4 g/dl (12.0-16.0) 08/31/23 01:20 Hct 39.3 % (37.0-47.0) 08/31/23 01:20 MCV 89.5 fL (80.0-100.0) 08/31/23 01:20 MCH 28.2 pg (25.0-34.0) 08/31/23 01:20 MCHC 31.6 g/dL (32.0-36.0) L 08/31/23 01:20 RDW Std Deviation 42.1 fL (36.4-46.3) 08/31/23 01:20 RDW Coeff of Jose Juan 12.7 % (11.5-14.5) 08/31/23 01:20 Plt Count 256 K/uL (130-400) 08/31/23 01:20 MPV 10.6 fL (9.4-12.4) 08/31/23 01:20 Immature Gran % (Auto) 0.3 % 08/31/23 01:20 Neut % (Auto) 61.6 % 08/31/23 01:20 Lymph % (Auto) 29.1 % 08/31/23 01:20 [place] % (Auto) 4.3 % 08/31/23 01:20 Eos % (Auto) 4.0 % 08/31/23 01:20 Baso % (Auto) 0.7 % 08/31/23 01:20 Neut # (Auto) 4.14 K/uL (1.40-6.50) 08/31/23 01:20 Lymph # (Auto) 1.96 K/uL (1.20-3.40) 08/31/23 01:20 [place] # (Auto) 0.29 K/uL (0.11-0.59) 08/31/23 01:20 Eos # (Auto) 0.27 K/uL (0.00-0.50) 08/31/23 01:20 Baso # (Auto) 0.05 K/uL (0.00-0.20) 08/31/23 01:20 Immature Gran # (Auto) 0.02 K/uL (0.01-0.20) 08/31/23 01:20 Sodium 139 mmol/L (136-145) 08/31/23 01:20 Potassium 3.8 mmol/L (3.5-5.1) 08/31/23 01:20 Chloride 105 mmol/L (98-107) 08/31/23 01:20 Carbon Dioxide 26 mmol/L (21-32) 08/31/23 01:20 Anion Gap 8 (3-11) 08/31/23 01:20 BUN 18 mg/dl (6-23) 08/31/23 01:20 Creatinine 0.72 mg/dl (0.6-1.2) 08/31/23 01:20 Est Cr Clr Drug Dosing 107.0 ml/min 08/31/23 01:20 Est GFR ( Amer) 115.6 ml/min 08/31/23 01:20 Est GFR (Non-Af Amer) 99.7 ml/min 08/31/23 01:20 BUN/Creatinine Ratio 25.0 (10-20) H 08/31/23 01:20 Glucose 91 mg/dl (70-99(Fasting)) 08/31/23 01:20 Calcium 9.5 mg/dl (8.6-10.3) 08/31/23 01:20 Magnesium 2.0 mg/dl (1.7-2.4) 08/31/23 01:20 Total Bilirubin 0.4 mg/dl (0.2-1.0) 08/31/23 01:20 AST 13 U/L (13-39) 08/31/23 01:20 ALT 13 U/L (7-52) 08/31/23 01:20 Alkaline Phosphatase 106 U/L (34-104) H 08/31/23 01:20 Troponin I High Sens 4.8 pg/ml (0-14) 08/31/23 01:20 Total Protein 7.6 gm/dl (6.0-8.3) 08/31/23 01:20 Albumin 4.5 gm/dl (3.4-5.0) 08/31/23 01:20 Globulin 3.1 gm/dl (2.5-4.0) 08/31/23 01:20 Albumin/Globulin Ratio 1.5 (0.9-2) 08/31/23 01:20 Lipase 28 U/L (11-82) 08/31/23 01:20 HCG, Qual Negative (Negative) 08/31/23 01:20 Urine Color Yellow 08/31/23 03:05 Urine Appearance Clear (Clear) 08/31/23 03:05 Urine pH 5.5 (4.5-7.5) 08/31/23 03:05 Ur Specific [place] 1.014 (1.000-1.030) 08/31/23 03:05 Urine Protein Negative (Negative) 08/31/23 03:05 Urine Glucose (UA) Negative (Negative) 08/31/23 03:05 Urine Ketones Negative (Negative) 08/31/23 03:05 Urine Blood Negative (Negative) 08/31/23 03:05 Urine Nitrite Negative (Negative) 08/31/23 03:05 Urine Bilirubin Negative (Negative) 08/31/23 03:05 Urine Urobilinogen Negative (Negative) 08/31/23 03:05 Ur Leukocyte Esterase Negative (Negative) 08/31/23 03:05 Impressions Abdomen/Pelvis CT 08/31/23 01:20 Exam(s): CT ABDOMEN + PELVIS Without Contrast EXAM: CT Abdomen and Pelvis Without Intravenous Contrast CLINICAL HISTORY: Pain. TECHNIQUE: Axial computed tomography images of the abdomen and pelvis without intravenous contrast. CTDI is 23.97 mGy and DLP is 1225.27 mGy-cm. Automated exposure control was utilized for the study. A dose lowering technique was utilized adhering to the principles of ALARA. COMPARISON: No relevant prior studies available. FINDINGS: Lung bases: Unremarkable. No mass. No consolidation. ABDOMEN: Liver: Unremarkable. Gallbladder and bile ducts: Cholecystectomy. No ductal dilation. Pancreas: Unremarkable. No ductal dilation. Spleen: Unremarkable. No splenomegaly. Adrenals: Unremarkable. No mass. Kidneys and ureters: Unremarkable. No obstructing stones. No hydronephrosis. Stomach and bowel: There is thickening of the stomach wall with adjacent inflammatory stranding. There are surgical changes of the stomach and small bowel. No obstruction. PELVIS: Appendix: Normal appendix. Bladder: Thickening of the urinary bladder wall could relate to nondistention or cystitis. No stones. Reproductive: Unremarkable as visualized. ABDOMEN and PELVIS: Intraperitoneal space: Unremarkable. No free air. No significant fluid collection. Bones/joints: There are degenerative changes of the spine. No acute fracture. No dislocation. Soft tissues: Unremarkable. Vasculature: Unremarkable. No abdominal aortic aneurysm. Lymph nodes: Unremarkable. No enlarged lymph nodes. IMPRESSION: 1. There is thickening of the stomach wall with adjacent inflammatory stranding. This could be infectious, inflammatory neoplastic. 2. Thickening of the urinary bladder wall could relate to nondistention or cystitis. Electronically signed by: Maira Chamberlain MD 08/31/23 02:13 AM Pending Results Patient Have Any Pending Studies at Discharge: No Discharge Instructions Given to Patient (Per Discharging Provider) PLEASE REFER TO YOUR NEW MEDICATION LIST AND FOLLOW INSTRUCTIONS CAREFULLY. YOUR NEW MEDICATION INCLUDE: Pantoprazole or Protonix-antacid for possible gastritis/stomach ulcer -Please take at least 30 minutes before meal Drink plenty of water. PLEASE CALL YOUR PRIMARY CARE PHYSICIAN OR RETURN TO THE ER IF WITH WORSENING OF SYMPTOMS, INCLUDING Worsening abdominal pain, nausea or vomiting, black or bloody stools, etc. FOLLOW UP WITH PRIMARY CARE PHYSICIAN IN 1 WEEK. PLEASE FOLLOW-UP WITH YOUR DERRICK WORKER [facility]ICE TO BE SCHEDULED FOR AN UPPER GI ENDOSCOPY SOON. Total Time Total Time Spent Total Time Spent (In Minutes): >30 minutes
[2023-08-31] MEDS ORDERED: PANTOprazole 40 MG in SYRINGE 0 ML IV SCH (21:00)
--- NOTE | 2023-08-31 21:25 | Emergency Department Note ---
History of Present Illness General Chief complaint: Abdominal Pain Stated complaint: LEFT SIDE ABD PAIN Time Seen by Provider: 08/31/23 01:13 History of Present Illness Maximum Pain Intensity: 5 This is a 48-year-old female presenting to the emergency department for evaluation of left-sided upper abdominal pain. Patient has had symptoms worsening over the past few days. She does have a history of gastric bypass and section. She rates the pain a 5/10 and does not identify aggravating or alleviating factors. She has not had any significant fevers or chills. No chest pain, chest tightness, or shortness of breath. Home Medications Medication Instructions Recorded Confirmed Type calcium carbonate 200 mg-vitamin 2 cap PO BID 08/31/23 08/31/23 History D3 10 mcg (400 unit) capsule cholecalciferol (vitamin D3) 25 25 mcg PO DAILY 08/31/23 08/31/23 History mcg (1,000 unit) tablet (Vitamin D3) cyanocobalamin (vitamin B-12) 1,000 mcg IM .EVERY 3 MONTHS 08/31/23 08/31/23 History 1,000 mcg/mL injection solution pantoprazole 40 mg tablet,delayed 40 mg PO BID 30 days #60 tabs 08/31/23 Rx release (Protonix) pediatric multivitamin no.76 1 tab PO BID 08/31/23 08/31/23 History (Flintstones Complete chewable tablet) vitamin A 3,000 mcg (10,000 unit) 3,000 mcg PO DAILY 08/31/23 08/31/23 History capsule Allergies Allergy/AdvReac Type Severity Reaction Status Date / Time No Known Allergies Allergy Unknown Verified 08/31/23 02:11 Past Med/Surg History Medical History Gastritis Surgical History History of section History of gastric bypass Social History Smoking Status: Never smoker Hx Alcohol Use: No Hx Substance Use: No Preferred Language: Italian Communication Ability: Effective Shelter Case Manager Required: No Beliefs That Will Affect Care: None Current Living Situation: Alone Other Information That Helps Us Care for You: No Feels Safe at Home: Yes Safety Concerns: Feels Safe At This Time Assistive Devices: None Review of Systems A total of 10 systems reviewed and were otherwise negative Physical Exam Vital Signs Vital Signs - 24 hr 08/31/23 01:04 08/31/23 01:30 08/31/23 01:39 Temperature 36.6 C Temperature Source Temporal Artery Scan Pulse Rate 63 66 Pulse Rate from SpO2 Sensor Respiratory Rate 18 Respiratory Effort / Characteristics Non-Labored Respiratory Depth Normal Blood Pressure 171/95 H Blood Pressure [Right Arm] 147/89 H Blood Pressure Mean 120 Blood Pressure Mean [Right Arm] 108 Pulse Oximetry 100 Oxygen Delivery Method Room Air Sepsis Recent Fever Within 48 Hours No Sepsis New/Unexplained Change in Mental Status No Sepsis Action Taken by Nursing No Action Required 08/31/23 01:40 08/31/23 02:00 08/31/23 02:30 Temperature Temperature Source Pulse Rate 64 57 L 59 L Pulse Rate from SpO2 Sensor Respiratory Rate 19 19 19 Respiratory Effort / Characteristics Respiratory Depth Blood Pressure 137/75 140/76 Blood Pressure [Right Arm] Blood Pressure Mean 95 97 Blood Pressure Mean [Right Arm] Pulse Oximetry 100 97 97 Oxygen Delivery Method Room Air Room Air Room Air Sepsis Recent Fever Within 48 Hours Sepsis New/Unexplained Change in Mental Status Sepsis Action Taken by Nursing 08/31/23 03:30 08/31/23 04:00 Temperature Temperature Source Pulse Rate 58 L 67 Pulse Rate from SpO2 Sensor 57 L 67 Respiratory Rate 20 20 Respiratory Effort / Characteristics Respiratory Depth Blood Pressure 122/68 117/64 Blood Pressure [Right Arm] Blood Pressure Mean 86 81 Blood Pressure Mean [Right Arm] Pulse Oximetry 98 98 Oxygen Delivery Method Sepsis Recent Fever Within 48 Hours Sepsis New/Unexplained Change in Mental Status Sepsis Action Taken by Nursing VITALS: Vitals are noted on the nurse's note and reviewed by myself. Vital signs stable. GENERAL: Well-developed, well-nourished, white female, who is in no acute distress and resting comfortably. Patient is cooperative with the examination. HEAD: Normocephalic atraumatic. NECK: Supple without nuchal rigidity. No lymphadenopathy. No thyromegaly. Cervical spine is nontender. HEART: Regular rate and rhythm without murmurs gallops or rubs. LUNGS: Clear to auscultation bilaterally without wheezes, rales or rhonchi. No retractions or accessory muscle use. ABDOMEN: Positive normal bowel sounds x 4. Soft mild reproducible epigastric tenderness. No rebound or guarding. No lower abdominal tenderness. MUSCULOSKELETAL: No muscle atrophy, erythema, or edema noted. Full range of motion in all extremities. Course Administered Medications Discontinued Medications Pantoprazole Sodium 40 mg/ (Syringe) 10 mls @ 5 mls/min IV NOW ONE Stop: 08/31/23 02:47 Last Admin: 08/31/23 02:59 Dose: Not Given Documented By: BARRY Pantoprazole Sodium 80 mg/ (Dextrose) 120 mls @ 480 mls/hr IV NOW ONE Stop: 08/31/23 03:00 Last Infusion: 08/31/23 04:14 Dose: Infused Documented By: Admin: 08/31/23 02:59 Dose: 480 mls/hr Documented By: BARRY Pantoprazole Sodium 40 mg/ (Dextrose) 100 mls @ 20 mls/hr IV Q5H AYSHA Stop: 09/30/23 03:14 Last Admin: 08/31/23 04:43 Dose: Not Given Documented By: BISI Lactated Ringer's (Lr) 1,000 mls @ 125 mls/hr IV .Q8H STA Stop: 08/31/23 12:25 Last Infusion: 08/31/23 09:08 Dose: 125 mls/hr Documented By: Admin: 08/31/23 05:54 Dose: 60 mls/hr Documented By: SANDRA Sodium Chloride (Nss) 500 mls @ 999 mls/hr IV .Q31M ONE Stop: 08/31/23 13:09 Last Infusion: 08/31/23 13:35 Dose: Infused Documented By: Admin: 08/31/23 12:44 Dose: 999 mls/hr Documented By: JERRICA Morphine Sulfate (Morphine Sulfate 4 Mg/Ml 1 Ml Carp\Vial) 4 mg IV Q30M PRN PRN Reason: Pain Stop: 09/14/23 01:19 Last Admin: 08/31/23 01:27 Dose: 4 mg Documented By: BARRY Multivitamins/Folic Acid/Vitamin C (Multivitamin Chewable Tab) 1 tab PO BID AYSHA Stop: 09/30/23 08:59 Last Admin: 08/31/23 08:13 Dose: 1 tab Documented By: DESTINY Ondansetron HCl (Ondansetron Inj 2 Mg/Ml 2 Ml Vial) 4 mg IV NOW STA Stop: 08/31/23 01:21 Last Admin: 08/31/23 01:27 Dose: 4 mg Documented By: [facility] Medical Decision Making Differential Diagnosis Differential diagnosis: Etiologies such as biliary colic, cholecystitis, hepatitis, pancreatitis, cardiac disease, pancreatitis, gastritis, peptic ulcer disease, appendicitis, cystitis, diverticulitis, mesenteric ischemia, inflammatory bowel disease, ileus, bowel obstruction, testicular/adnexal torsion, aortic pathology, shingles, as well as others were considered Laboratory Data 08/31/23 01:20 08/31/23 01:20 Lab Results 08/31/23 08/31/23 Range/Units 01:20 03:05 WBC 6.73 (4.8-10.8) K/ul RBC 4.39 (4.20-5.40) M/uL Hgb 12.4 (12.0-16.0) g/dl Hct 39.3 (37.0-47.0) % MCV 89.5 (80.0-100.0) fL MCH 28.2 (25.0-34.0) pg MCHC 31.6 L (32.0-36.0) g/dL RDW Std Deviation 42.1 (36.4-46.3) fL RDW Coeff of Jose Juan 12.7 (11.5-14.5) % Plt Count 256 (130-400) K/uL MPV 10.6 (9.4-12.4) fL Immature Gran % (Auto) 0.3 % Neut % (Auto) 61.6 % Lymph % (Auto) 29.1 % [place] % (Auto) 4.3 % Eos % (Auto) 4.0 % Baso % (Auto) 0.7 % Neut # (Auto) 4.14 (1.40-6.50) K/uL Lymph # (Auto) 1.96 (1.20-3.40) K/uL [place] # (Auto) 0.29 (0.11-0.59) K/uL Eos # (Auto) 0.27 (0.00-0.50) K/uL Baso # (Auto) 0.05 (0.00-0.20) K/uL Immature Gran # (Auto) 0.02 (0.01-0.20) K/uL Sodium 139 (136-145) mmol/L Potassium 3.8 (3.5-5.1) mmol/L Chloride 105 (98-107) mmol/L Carbon Dioxide 26 (21-32) mmol/L Anion Gap 8 (3-11) BUN 18 (6-23) mg/dl Creatinine 0.72 (0.6-1.2) mg/dl Est Cr Clr Drug Dosing 107.0 ml/min Est GFR ( Amer) 115.6 ml/min Est GFR (Non-Af Amer) 99.7 ml/min BUN/Creatinine Ratio 25.0 H (10-20) Glucose 91 (70-99(Fasting)) mg/dl Calcium 9.5 (8.6-10.3) mg/dl Magnesium 2.0 (1.7-2.4) mg/dl Total Bilirubin 0.4 (0.2-1.0) mg/dl AST 13 (13-39) U/L ALT 13 (7-52) U/L Alkaline Phosphatase 106 H (34-104) U/L Troponin I High Sens 4.8 (0-14) pg/ml Total Protein 7.6 (6.0-8.3) gm/dl Albumin 4.5 (3.4-5.0) gm/dl Globulin 3.1 (2.5-4.0) gm/dl Albumin/Globulin Ratio 1.5 (0.9-2) Lipase 28 (11-82) U/L HCG, Qual Negative (Negative) Urine Color Yellow Urine Appearance Clear (Clear) Urine pH 5.5 (4.5-7.5) Ur Specific [place] 1.014 (1.000-1.030) Urine Protein Negative (Negative) Urine Glucose (UA) Negative (Negative) Urine Ketones Negative (Negative) Urine Blood Negative (Negative) Urine Nitrite Negative (Negative) Urine Bilirubin Negative (Negative) Urine Urobilinogen Negative (Negative) Ur Leukocyte Esterase Negative (Negative) Imaging Data Radiologist's Impression: Abdomen/Pelvis CT 08/31/23 01:20 Exam(s): CT ABDOMEN + PELVIS Without Contrast EXAM: CT Abdomen and Pelvis Without Intravenous Contrast CLINICAL HISTORY: Pain. TECHNIQUE: Axial computed tomography images of the abdomen and pelvis without intravenous contrast. CTDI is 23.97 mGy and DLP is 1225.27 mGy-cm. Automated exposure control was utilized for the study. A dose lowering technique was utilized adhering to the principles of ALARA. COMPARISON: No relevant prior studies available. FINDINGS: Lung bases: Unremarkable. No mass. No consolidation. ABDOMEN: Liver: Unremarkable. Gallbladder and bile ducts: Cholecystectomy. No ductal dilation. Pancreas: Unremarkable. No ductal dilation. Spleen: Unremarkable. No splenomegaly. Adrenals: Unremarkable. No mass. Kidneys and ureters: Unremarkable. No obstructing stones. No hydronephrosis. Stomach and bowel: There is thickening of the stomach wall with adjacent inflammatory stranding. There are surgical changes of the stomach and small bowel. No obstruction. PELVIS: Appendix: Normal appendix. Bladder: Thickening of the urinary bladder wall could relate to nondistention or cystitis. No stones. Reproductive: Unremarkable as visualized. ABDOMEN and PELVIS: Intraperitoneal space: Unremarkable. No free air. No significant fluid collection. Bones/joints: There are degenerative changes of the spine. No acute fracture. No dislocation. Soft tissues: Unremarkable. Vasculature: Unremarkable. No abdominal aortic aneurysm. Lymph nodes: Unremarkable. No enlarged lymph nodes. IMPRESSION: 1. There is thickening of the stomach wall with adjacent inflammatory stranding. This could be infectious, inflammatory neoplastic. 2. Thickening of the urinary bladder wall could relate to nondistention or cystitis. Electronically signed by: Maira Chamberlain MD 08/31/23 02:13 AM MDM Narrative Physical exam and history were performed. Nursing notes, EMR, and Medication List were personally reviewed. No social concerns were identified as barriers to patients care. Patient appears to have abdominal pain bringing her to the ER. This does seem to be more upper and somewhat left-sided. She does have a history of gastric bypass. IV access was established and labs were obtained. Because of her symptoms she was sent to CT scan for imaging. Patient's blood work is as above and was reviewed. She does not have a significantly elevated white blood cell count, gross anemia, bandemia, or significant electrolyte imbalance. Transaminases are not diagnostic. CT scan was performed and reviewed by myself and radiology. CT does she seem to show some gastritis findings of unknown etiology. Case was discussed with with my attending physician who remained involved in care and decision making. Patient is somewhat concerning as she is having pain with gastritis in the area near her gastric bypass site. She was started on IV Protonix bolus with drip. The case was discussed with the on-call hospitalist who agreed to evaluate the patient here in the ER. Please see their dictation for further patient course, plan, and disposition. The chart was completed utilizing [employer] Speech Voice Recognition Software. Grammatical errors, random word insertions, pronoun errors, and incomplete sentences are an occasional consequence of this system due to software limitations, ambient noise, and hardware issues. Any formal questions or concerns about the content, text, or information contained within the body of this dictation should be directly addressed to the provider for clarification. . Impression & Plan Gastritis, Abdominal pain, Gastric bypass status for obesity Discharge Plan Visit Data Chief Complaint: Abdominal Pain Stated Complaint: LEFT SIDE ABD PAIN ED Provider: Arnel Hooks ED Midlevel Provider: Galen Clarke Discharge Problem: Gastritis, Abdominal pain, Gastric bypass status for obesity Patient Disposition: Admitted As Inpatient Discharge Instructions Interventions: ED Discharge Assessment Last Done: 08/31/23 05:05
[2023-09-01] MEDS ORDERED: PANTOprazole 40 MG TAB PO SCH (09:00)
== END 2023-08-31 14:22 | disposition home or self-care (01) ==
LOC: 3N 00:59 → ED 00:59 → 3N 05:05